=== PATIENT | male | born 1935 | race Caucasian/White ===

== ENCOUNTER 2017-10-30 07:06 | Outpatient (CLI) | payer MEDICARE, OTHER, SELFPAY ==
[2017-10-30] VITALS (11 sets, daily range): BP systolic 119–143; BP diastolic 48–69; PULSE 54–72; RESP 18; TEMP 36.3; O2SAT 99–100
--- NOTE | 2017-10-30 07:09 | DI.RAD.S_ITS ---
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 Appropriate location(s) of the needle tip(s) was confirmed by injection of iodinated contrast. IMPRESSION: Successful left L5-S1 nerve root epidural localization. Note is made on the lateral view of grade 2 anterolisthesis of L5 on S1, previously also documented by recent MR scanning. Dictated by: Darvin Bellamy M.D. on 10/30/2017 at 16:28 Approved by: Darvin Bellamy M.D. on 10/30/2017 at 16:30
--- NOTE | 2017-10-30 08:19 | P.PCN_ITS ---
Procedures Date/Time Date of procedure: 10/30/17 Time of procedure: 08:54 General Procedure description: PREOP DIAGNOSIS 1. FORMAINAL STENOSIS WITH LE SYMPTOMS POST OP DIAGNOSIS 1. FORMAINAL STENOSIS WITH LE SYMPTOMS PROCEDURES 1. FLUOROSCOPICALLY GUIDED CONTRAST CONTROLLED TRANSFORAMINAL EPIDURAL STEROID INJECTION - Left L5/S1 PHYSICIAN: Markel Hernandez DO INDICATIONS: Sae is referred by Dr. Brownlee for treatment of Foraminal Stenosis with Right LE Symptoms FINDINGS Foraminal Nerve Root Compression secondary to disc disease and facet hypertrophy DESCRIPTION OF PROCEDURE: Following denial of allergy and review of potential side effects and complications, including, but not necessarily limited to, infection, allergic reaction, local tissue breakdown, stroke, temporary or permanent nerve injury, paralysis, and possible , the patient indicated that the patient understood and agreed to proceed. An informed consent document was signed by the patient, witnessed by a nurse, and placed in the patient's chart. Additionally, other treatment options including medications, modalities, and physical therapy were reviewed with the patient. Per the patient request, IV conscious sedation was administered via 3mg of Versed to patient comfort. The patient's vital signs were monitored throughout the procedure by both the nurse and the physician without significant fluctuation. The patient remained conversant throughout the procedure. In the prone position following sterile prep and drape of the lumbar region, the Left L5/S1 posterior neuroforamen was identified fluoroscopically. The skin was anesthetized via a 25-gauge 1.5-inch needle with 1% lidocaine solution. At this point, a 25-gauge 3.5-inch spinal needle was atraumatically introduced and advanced under fluoroscopic guidance through the posterior Left L5/S1 neuroforamen to approximately the anterior aspect of the canal. Depth was confirmed on lateral view. Following negative aspiration, injection of approximately 1.5 cc of Isovue 200 under live fluoroscopy in the AP view confirmed excellent flow along the nerve root, into the epidural space without vascular or intrathecal uptake observed Radiological data, including multiple fluoroscopic views of the lumbosacral spine, reveal a spinal needle at the Left L5/S1 posterior neuroforamen. Subsequent views show flow of contrast material flowing superiorly and inferiorly along the nerve root confirming epidural flow. Subsequently, a test dose of 1.5 cc of 1% lidocaine solution was administered and patient was observed for two minutes for signs or symptoms of complications , including abdominal pain, shortness of breath, bilateral upper or lower extremity weakness, nausea and vomiting, prior to steroid injection. At this point, a total of 3 cc or 20 mg of dexamethasone and 80mg Depo Medrol was injected without incident. The patient was then transferred to the recovery area where they were observed for an appropriate time after the injection. The patient reported a VAS score of 7 prior to the procedure and a post-procedure VAS of 0. Total Fluoroscopy Time: 20.9 seconds Total Conscious Sedation Time: 24min POST OP INSTRUCTIONS The patient was provided a Pain Log to continue to record their response to the target-specific procedure prior to follow-up visit with their referring physician. Additionally, specific post-injection care instructions and a contact number to our office were provided if concerns arise regarding possible complications associated with the procedure are suspected. Markel Hernandez DO Complications: none
--- NOTE | 2017-10-30 08:30 | PM.PROC.1 ---
Procedures Date/Time Date of procedure: 10/30/17 Time of procedure: 08:30 General Procedure description: Complications: none
[2017-10-30] MEDS: MIDAZOLAM 5 MG/ML VIAL 3 MG IV (08:31)
[2017-10-30] MEDS: DEXAMETHASONE 10 MG/ML VIAL 20 MG INJ (08:40)
[2017-10-30] MEDS: methylPREDNISolone acetate 80 MG/ML VIAL INJ (08:40)
[2017-10-30] MEDS: IOPAMIDOL 15 ML VIAL 3 ML INJ (08:40)
[2017-10-30] MEDS: BUPIVACAINE 0.25% (PF) 30 ML VIAL INJ (08:42)
== END 2017-10-30 09:48 | disposition home or self-care (01) ==
LOC: RAD 07:08
PROVIDERS: Family Provider Family Medicine; PCP Family Medicine; Visit Provider Physical Medicine & Rehabilitation
DX: M54.17 Radiculopathy, lumbosacral region (principal); M43.17 Spondylolisthesis, lumbosacral region; M96.1 Postlaminectomy syndrome, not elsewhere classified; M21.372 Foot drop, left foot
CPT/HCPCS: 64483; 99152; J1040; J1100; J2250; J3010

== ENCOUNTER 2017-12-11 08:56 | Outpatient (CLI) | payer MEDICARE, OTHER, SELFPAY ==
[2017-12-11 09:08] VITALS: BP 141/74; PULSE 63; RESP 18; TEMP 36.1; O2SAT 97
--- NOTE | 2017-12-11 09:39 | PM.PROC.1 ---
Procedures Date/Time Date of procedure: 12/11/17 Time of procedure: 10:04 General Procedure description: This procedure was postponed and will be rescheduled due to medication issues to perform the procedure safely.
--- NOTE | 2017-12-11 10:01 | PC.NURSE ---
Pt only off Aspirin for 1 day, Dr. Morgan feels this pt needs to be off Aspirin for 5-7 days before procedure. Procedure has been postponed for safety reasons. Dr. Hernandez explained his concerns with pt, pt agreed to postpone procedure and Carmen called by [facility] to reschedule pt. Pt told by Shweta that Carmen or other office staff will be calling today to reschedule.
== END 2017-12-11 10:05 | disposition home or self-care (01) ==
LOC: RAD 08:58
PROVIDERS: Family Provider Family Medicine; PCP Family Medicine; Visit Provider Physical Medicine & Rehabilitation
DX: M43.17 Spondylolisthesis, lumbosacral region (principal); Z53.09 Procedure and treatment not carried out because of other contraindication; M21.372 Foot drop, left foot; M96.1 Postlaminectomy syndrome, not elsewhere classified

== ENCOUNTER 2017-12-26 11:00 | Outpatient (CLI) | payer MEDICARE, OTHER, SELFPAY ==
--- NOTE | 2017-12-26 | DI.RAD.S_ITS ---
PROCEDURE: PAIN L INTERLAMINAR/CAUDAL INJ INDICATIONS: LUMBOSACRAL RADICULOPATHY FINDINGS: Fluoroscopic spot filming was performed to verify placement of spinal needles at the L5-S1 level(s), as labeled on the films. Appropriate location(s) of the needle tip(s) was confirmed by injection of iodinated contrast. IMPRESSION: Successful needle tip localization for L5-S1 dorsal interlaminar epidural steroid injection. Dictated by: Darvin Bellamy M.D. on 12/26/2017 at 13:29 Approved by: Darvin Bellamy M.D. on 12/26/2017 at 13:30
[2017-12-26 11:42] VITALS: BP 155/78; PULSE 60; RESP 18; TEMP 36.6; O2SAT 99
--- NOTE | 2017-12-26 11:42 | PM.PROC.1 ---
Procedures Date/Time Date of procedure: 12/26/17 Time of procedure: 11:42 General Procedure description:
--- NOTE | 2017-12-26 11:51 | P.PCN_ITS ---
Procedures Date/Time Date of procedure: 12/26/17 Time of procedure: 12:04 General Procedure description: PROVIDER: Markel Hernandez DO Operative Note PREOP DIAGNOSIS 1. HNP WITH RADICULAR FEATURES, 2. MULTILEVEL CENTRAL STENOSIS, POST OP DIAGNOSIS 1. HNP WITH RADICULAR FEATURES, 2. MULTILEVEL CENTRAL STENOSIS, PROCEDURES 1. FLUORSCOPICALLY GUIDED CONTRAST CONTROLLED INTERLAMINAR EPIDURAL STEROID INJECTION - L5/S1 PHYSICIAN: Markel Hernandez DO INDICATIONS Peter is referred by Dr. Brownlee for treatment of Bilateral Foraminal Stenosis L> R LE symptoms. FINDINGS Multilevel Central Spinal Stenosis with Nerve Root Compression DESCRIPTION OF PROCEDURE Fluoroscopically guided, contrast-controlled L5/S1 translaminar epidural steroid injection. Following denial of allergy and review of potential side effects and complications, including, but not necessarily limited to, infection, allergic reaction, local tissue breakdown, temporary as well as permanent nerve injury, paralysis, stroke and possible , the patient indicated that the patient understood and agreed to proceed. An informed consent document was signed by the patient, witnessed by a nurse, and placed in the patient's chart. Additionally, other treatment options including modalities, medications, and physical therapy were reviewed with the patient. After review of previous anaesthesic history and IV conscious sedation the patient was deemed safe to proceed with todays procedure with IV conscious sedation as ASA class II designation. Safety time-out was performed to confirm patient ID, procedure to be performed and site of procedure. IV sedation was not administered during the course of the procedure and the patient remained responsive to all verbal commands. In the prone position, following sterile prep and drape of the lumbar region, the L5/S1 translaminar space was identified fluoroscopically. The skin was anesthetized via a 25-gauge, 1.5-inch needle with 1% lidocaine solution. At this point, a 22-gauge short bevel spinal needle was atraumatically introduced and advanced under fluoroscopic guidance into the region of the L5/S1 translaminar space. Depth was confirmed on lateral view. Radiological data, including multiple fluoroscopic views of the lumbar spine, reveal a spinal needle at the L5/S1 translaminar space. Lateral views then show placement of the needle in the epidural space. Subsequent views show contrast material flowing superiorly and inferiorly in the epidural space. No vascular or intrathecal uptake is observed. At this point, using loss of resistance technique with saline and air, the epidural space was entered. This was confirmed following negative aspiration with injection of approximately 1.5 cc of Isovue 200, showing excellent epidural flow without vascular or intrathecal uptake. At this point, 1 cc of 1 % lidocaine solution combined with 3 cc or 20 mg of dexamethasone and 80mg Depo medrol was injected without incident. The patent tolerated the procedure without signs of symptoms of complications prior to transfer to the recovery area for further monitoring. The patient was then transferred to the recovery area where they were observed for an appropriate period of time after the injection. The patient reported a VAS score of 6 prior to the procedure and a post-procedure VAS of 0. Total Fluoroscopy Time: 11.8 seconds Total Conscious Sedation Time: 0min POST OP INSTRUCTIONS The patient was provided a Pain Log to continue to record their response to the target-specific procedure prior to follow-up visit with their referring physician. Additionally, specific post-injection care instructions and a contact number to our office were provided if concerns arise regarding possible complications associated with the procedure are suspected. Markel Hernandez DO
[2017-12-26 11:55] VITALS: BP 164/82; PULSE 61; RESP 18; O2SAT 97
[2017-12-26 11:59] VITALS: BP 153/72; PULSE 60; RESP 18; O2SAT 97
[2017-12-26] MEDS: BUPIVACAINE 0.25% (PF) VIAL 2 ML INJ (12:00)
[2017-12-26] MEDS: IOPAMIDOL 15 ML VIAL 3 ML INJ (12:00)
[2017-12-26 12:01] VITALS: BP 152/77; PULSE 62; RESP 17; O2SAT 97
[2017-12-26] MEDS: DEXAMETHASONE 10 MG/ML VIAL 20 MG INJ (12:01)
[2017-12-26] MEDS: methylPREDNISolone acetate 80 MG/ML VIAL INJ (12:01)
[2017-12-26 12:10] VITALS: BP 125/63; PULSE 55; RESP 18; O2SAT 100
== END 2017-12-26 13:05 | disposition home or self-care (01) ==
PROVIDERS: Family Provider Family Medicine; PCP Family Medicine; Visit Provider Physical Medicine & Rehabilitation
DX: M51.17 Intervertebral disc disorders with radiculopathy, lumbosacral region (principal); M48.07 Spinal stenosis, lumbosacral region
CPT/HCPCS: 62323; J1040; J1100; J2250

== ENCOUNTER → 2018-05-30 10:54 | Outpatient (CLI) | payer MEDICARE, OTHER, SELFPAY ==
--- NOTE | 2018-05-30 | DI.RAD.S_ITS ---
PROCEDURE: XR ANKLE LT 2V INDICATIONS: LEFT ANKLE PAIN TECHNIQUE: 3 views of the ankle were acquired. COMPARISON: None. FINDINGS: Bones: No fractures or dislocations. Ankle mortise is normally aligned. No suspicious bony lesions. Plantar calcaneal spur. Tibiotalar mild degenerative spurring. There is also diffuse midfoot degenerative spurring. Soft tissues: No tibiotalar joint effusion. Achilles tendon appears normal. IMPRESSION: Plantar calcaneal spur. No acute findings. Diffuse degenerative spurring Dictated by: Cristhian Reveles M.D. on 05/30/2018 at 12:30 Approved by: Cristhian Reveles M.D. on 05/30/2018 at 12:35
== END ==
PROVIDERS: PCP Family Medicine; Visit Provider Family Medicine
DX: M25.572 Pain in left ankle and joints of left foot (principal); M77.32 Calcaneal spur, left foot
CPT/HCPCS: 73600

== ENCOUNTER → 2018-09-02 12:43 | Outpatient (REF) | payer MEDICARE, OTHER, SELFPAY ==
[2018-09-02 13:05] LABS: Influenza A and B by PCR Rapid Negative (Negative)
== END ==
LOC: LAB 12:43
PROVIDERS: Family Provider Family Medicine; PCP Family Medicine; Visit Provider Family Medicine
DX: R05 Cough (principal); J02.9 Acute pharyngitis, unspecified
CPT/HCPCS: 87400

== ENCOUNTER → 2019-11-17 08:55 | Outpatient (CLI) | payer MEDICARE, OTHER, SELFPAY ==
--- NOTE | 2019-11-17 | DI.CT.S_ITS ---
PROCEDURE: CT SINUS SCREEN WO CON INDICATIONS: Chronic sinusitis TECHNIQUE: Noncontrast 3.0 mm axial images acquired from the frontal sinuses to the mid-sella, with coronal and sagittal reformats. For radiation dose reduction, the following was used: automated exposure control, adjustment of mA and/or kV according to patient size. COMPARISON: None. FINDINGS: Image quality: Excellent. Maxillary Sinuses: No bony remodeling or destruction. Minimal mucosal thickening in the inferior left maxillary sinus. The ostia are patent. Ethmoid Air Cells: No bony remodeling or destruction. Sinuses are clear. Sphenoid Sinuses: No bony remodeling or destruction. Sinuses are clear. Frontal Sinuses: No bony remodeling or destruction. Sinuses are clear. Ostiomeatal Complexes: Ostiomeatal complexes are patent. No [place] cells. Miscellaneous: Visualized intra-orbital contents are normal. Left forrest bullosa without opacification. No paradoxical turbinate curvature. Rightward nasal septal deviation with spurring at the level of the inferior nasal turbinate. There is approximately 4 mm asymmetric elevation of the left fovea ethmoidalis when compared with the right. IMPRESSION: 1. Minimal inflammatory changes in the inferior left maxillary sinus. No findings of acute or chronic sinusitis. Dictated by: Robert Wei M.D. on 11/17/2019 at 9:58 Approved by: Robert Wei M.D. on 11/17/2019 at 10:03
== END ==
PROVIDERS: Family Provider Family Medicine; PCP Family Medicine; Referring Provider Family Medicine; Visit Provider Family Medicine
DX: J32.9 Chronic sinusitis, unspecified (principal)
CPT/HCPCS: 70486

== ENCOUNTER → 2020-06-18 10:19 | Outpatient (CLI) | payer MEDICARE, OTHER, SELFPAY ==
[2020-06-18] MEDS: COVID-19 VACC #1, MRNA(MOD) 100 MCG/0.5 ML VIAL IM (10:24)
== END ==
PROVIDERS: Family Provider Family Medicine; PCP Family Medicine; Visit Provider Internal Medicine
DX: Z23 Encounter for immunization (principal)
CPT/HCPCS: 0011A; 91301

== ENCOUNTER → 2020-07-16 11:06 | Outpatient (CLI) | payer MEDICARE, OTHER, SELFPAY ==
[2020-07-16] MEDS: COVID-19 VACC #2, MRNA(MOD) 100 MCG/0.5 ML VIAL IM (11:11)
== END ==
PROVIDERS: Family Provider Family Medicine; PCP Family Medicine; Visit Provider Internal Medicine
DX: Z23 Encounter for immunization (principal)
CPT/HCPCS: 0012A; 91301

== ENCOUNTER 2020-10-22 12:43 | Emergency (ER) | payer MEDICARE, OTHER, SELFPAY ==
[2020-10-22 12:45] VITALS: BP 102/67; PULSE 130; RESP 16; TEMP 36.7; O2SAT 99; BMI 34.2
--- NOTE | 2020-10-22 15:56 | ED.WOUNDLAC ---
HPI - Wound/Laceration General Chief Complaint: Wound/Laceration Stated Complaint: Fall, Left Wrist Laceration, Blood Thinners Time Seen by Provider: 10/22/20 15:55 Source: patient Mode of arrival: Ambulatory Limitations: no limitations History of Present Illness HPI narrative: 85-year-old male nonsmoker with history of atrial flutter on anticoagulation presents with his in the chief complaint of a ground level fall in which he landed onto his left wrist and suffered small laceration. He denies any head, neck or back pain. He has full recall of the event. He states that he merely tripped and had no prodromal symptoms. He denies any chest pain or shortness of breath. He has full range of motion denies any numbness, tingling or weakness. He is otherwise well and free of complaint Onset (ago): hour(s) Extremity Location: Left: wrist Place: home Patient tetanus UTD: No Context: accidental Associated symptoms: none Treatments prior to arrival: bandage Related Data Home Medications Medication Instructions Recorded Confirmed aspirin 325 mg tablet 325 mg PO DAILY 10/12/17 01/18/18 atorvastatin 20 mg tablet 10 mg PO DAILY 10/12/17 01/18/18 betamethasone, augmented 0.05 % 1 applictn TOP DAILY 10/12/17 01/18/18 topical cream cromolyn 5.2 mg/spray (4 %) nasal 2 spray NASAL TID ml 10/12/17 01/18/18 spray cyclosporine 0.05 % eye drops in a EYE-BOTH each 10/12/17 01/18/18 dropperette fexofenadine 180 mg tablet 180 mg PO DAILY 10/12/17 01/18/18 lisinopril 10 mg tablet 10 mg PO DAILY 10/12/17 01/18/18 niacin 500 mg capsule,extended 500 mg PO BEDTIME 10/12/17 01/18/18 release omega-3 fatty acids 1,000 mg 1,000 mg PO DAILY 10/12/17 01/18/18 capsule tramadol 50 mg tablet 50 mg PO QID 10/12/17 01/18/18 Previous Rx's Medication Instructions Recorded gabapentin 300 mg capsule 300 mg PO TID #90 cap 01/18/18 Allergies Allergy/AdvReac Type Severity Reaction Status Date / Time No Known Drug Allergies Allergy Verified 05/28/21 12:49 Review of Systems Constitutional Constitutional: Denies chills, Denies fatigue, Denies fever(s), Denies frequent falls, Denies lethargy and Denies weakness Eyes Eyes: Denies change in vision, Denies eye discharge, Denies irritation and Denies loss of vision ENT Ears, Nose, Mouth, and Throat: Denies change in voice, Denies dizziness, Denies neck pain, Denies sore throat and Denies throat swelling Cardiovascular Cardiovascular: Denies chest pain, Denies irregular heart rhythm, Denies lightheadedness, Denies palpitations, Denies dyspnea, Denies dyspnea on exertion and Denies orthopnea Respiratory Respiratory: Denies cough, Denies dyspnea, Denies dyspnea on exertion and Denies wheezing Gastrointestinal Gastrointestinal: Denies abdominal pain, Denies change in bowel habits, Denies diarrhea, Denies nausea and Denies vomiting Musculoskeletal Musculoskeletal: Denies neck pain and Denies numbness Integumentary/Breasts Skin/Breast: Denies pruritus, Denies erythema, Denies rash and Reports wounds Neurologic Neurologic: Denies behavioral changes, Denies confusion, Denies dizziness, Denies frequent falls, Denies loss of vision, Denies numbness and Denies weakness Psychiatric Psychiatric: Denies anxiety, Denies behavioral changes, Denies confusion, Denies depression, Denies homicidal ideation and Denies suicidal ideation Endocrine Endocrine: Denies fatigue, Denies flushing and Denies palpitations Hematologic/Lymphatic Hematologic/Lymphatic: Denies easy bruising Allergic/Immunologic Allergic/Immunologic: Denies urticaria, Denies throat swelling and Denies wheezing Patient History Medical History Asthma Diabetes Surgical History Previous back surgery Family History Father No problems noted. Mother No problems noted. Social History Smoking Status: Never smoker Smoking Status: Never smoker alcohol intake frequency: holidays/special occasions only Substance Use Type: does not use Exam Narrative Exam Narrative: GEN: AOx3 and in mild distress EYES: Pupils are equal, round, and reactive to light and accommodation. Extraoccular muscles are intact bilaterally. There is no subconjunctival hemorrhage or exudate. CHEST: Lungs are clear to auscultation bilaterally and free of wheezes, rales, or rhonchi. Heart rate is regular rhythm, there are no murmurs, clicks, rubs, or gallops. There is no chest wall tenderness. ABD: Abdomen is soft and nontender. There is no guarding or rebound. Bowel sounds are normal in all 4 quadrants. There is no mass or organomegaly. EXT: Full painless ROM of all extremities with no loss of sensation or strength. SKIN: 2 cm laceration on the volar aspect or left wrist, superficial in nature, minimal bleeding, no pulsatile nature, deep structures intact. Warm, pink, and dry. No erythema or rash Initial Vital Signs Initial Vital Signs: Vital Signs Temperature 98.0 F 10/22/20 12:45 Pulse Rate 130 H 10/22/20 12:45 Respiratory Rate 16 10/22/20 12:45 Blood Pressure 102/67 10/22/20 12:45 Pulse Oximetry 99 10/22/20 12:45 Procedures Laceration Repair Laceration 1: Site: upper extremity Side (If applicable): left Size (cm): 2 Description: linear Depth: simple, single layer Local Anesthetic: lidocaine 1% Pre-repair: wound explored Skin layer closed with: nylon Size (cm): 4-0 Number of sutures: 3 Technique: simple, interrupted Course Orders Ordered: Discontinued Medications Diphtheria/Tetanus/Acell Pertussis (Tet,Diph,Pertuss(Acell),Vac/Pf 0.5 Ml Syringe) 0.5 ml IM .ONCE ONE Stop: 10/22/20 16:16 Last Admin: 10/22/20 16:38 Dose: 0.5 ml Documented by: [email or web address] Lidocaine/Epinephrine (Lidocaine 1% W/Epi) 1 ml SUBCUT NOW ONE Stop: 10/22/20 15:58 Last Admin: 10/22/20 16:06 Dose: 1 ml Documented by: [email or web address] Vital Signs Vital signs: Vital Signs - 8 hr 10/22/20 12:45 Temperature 98.0 F Pulse Rate 130 H Respiratory Rate 16 Blood Pressure 102/67 Pulse Oximetry 99 Discharge Plan Departure Patient Disposition: Home Clinical Impression: Laceration of left wrist Qualifiers: Encounter type: initial encounter Qualified Code(s): S61.512A - Laceration without foreign body of left wrist, initial encounter Instructions: DI for Laceration Repair Activity Restrictions/Additional Instructions: *You have been diagnosed with [fall with left wrist laceration, suture repair and tetanus update] *What to do: *Please continue to take your regular medications as directed. [ ] New medication prescriptions sent to your pharmacy: [ ] [ ] New medication written as a paper prescription [x ] No new medications given * Please keep the wound clean and dry to the best of your ability. Please monitor for signs of infection such as redness to the skin or increasing pain. Have the sutures removed by your doctor in about 7 days. If you are unable to get into your doctor, we would be happy to remove the sutures in that same timeframe. *If you do not have a primary care provider please contact the [facility] Resource line at [phone]. They will ask some questions about your medical history and help get you set up with a doctor in the community. *Return to Emergency Department if you should have any new, worsening or concerning symptoms, such as [fever greater than 101 F, shaking chills, worsening pain, persistent vomiting or other bothersome symptoms] Prescriptions: No Action atorvastatin 20 mg tablet 10 mg PO DAILY RF: 0 cromolyn 5.2 mg/spray (4 %) spray,non-aerosol 2 spray NASAL TID RF: 0 omega-3 fatty acids [Fish Oil Concentrate] 1,000 mg capsule 1,000 mg PO DAILY RF: 0 aspirin 325 mg tablet 325 mg PO DAILY RF: 0 betamethasone, augmented 0.05 % cream 1 applictn TOP DAILY RF: 0 fexofenadine 180 mg tablet 180 mg PO DAILY RF: 0 tramadol 50 mg tablet 50 mg PO QID RF: 0 lisinopril 10 mg tablet 10 mg PO DAILY RF: 0 niacin 500 mg capsule, extended release 500 mg PO BEDTIME RF: 0 cyclosporine [Restasis] 0.05 % dropperette EYE-BOTH RF: 0 gabapentin 300 mg capsule 300 mg PO TID Qty: 90 RF: 2 Referrals: Markel Brownlee MD [Primary Care Provider] -
[2020-10-22] MEDS: LIDOCAINE 1% W/EPI 1 ML SUBCUT (16:06)
--- NOTE | 2020-10-22 16:13 | PC.NURSE ---
Called [facility] and they stated his last tetnus was September/2011
[2020-10-22] MEDS: TET,DIPH,PERTUSS(ACELL),VAC/PF 0.5 ML SYRINGE IM (16:38)
[2020-10-22 16:43] VITALS: BP 127/69; PULSE 129; RESP 16; O2SAT 98
== END 2020-10-22 16:53 | disposition home or self-care (01) ==
PROVIDERS: Emergency Provider Emergency Medicine; Family Provider Family Medicine; PCP Family Medicine
DX: S61.512A Laceration without foreign body of left wrist, initial encounter (principal); W19.XXXA Unspecified fall, initial encounter; Z23 Encounter for immunization
CPT/HCPCS: 12001; 90471; 99283; 90715

== ENCOUNTER → 2020-10-28 12:35 | Outpatient (CLI) | payer MEDICARE, OTHER, SELFPAY ==
--- NOTE | 2020-11-24 09:44 | PM.CARDMON.1 ---
[facility] Nurse Report Referral & Results Date Patient Seen: 10/28/20 Requesting provider: Markel Brownlee Indication: Atrial fibrillation Duration of monitoring (days): 3 Diary information: There are no patient events to review Data: Minimum heart rate identified was 56 beats per minute at 01:03 on 10/31/2020 Maximum heart rate was 154 beats per minute at 07:27 on 10/29/2020 Less than 1% of identified beats were ventricular or supraventricular ectopic in origin, which would classify them as rare. Patient appeared to be in atrial flutter for the entire duration of the monitoring period. Some of these episodes may be atrial tachycardia with variable block but reviewing even the strips with the slowest heart rate atrial flutter appears to be more likely diagnosis. There was also a 6 beat run of monomorphic ventricular tachycardia Impression: Patient with atrial flutter and variable conduction as above Single run of nonsustained ventricular tachycardia as above Clinical correlation suggested
== END ==
PROVIDERS: Family Provider Family Medicine; PCP Family Medicine; Referring Provider Family Medicine; Visit Provider Family Medicine
DX: I48.91 Unspecified atrial fibrillation (principal)
CPT/HCPCS: 93242; 93244

== ENCOUNTER → 2020-11-08 15:57 | Outpatient (CLI) | payer MEDICARE, OTHER, SELFPAY ==
--- NOTE | 2020-11-08 | DI.ECHO.S_ITS ---
[facility]---------+ [facility] +---------+ : : [address] [place] : : : : [id number] : : : : Phone: [phone] Echocardiogram Report + + :Name: ANASTACIA VEGA Study Date: 11/08/2020 Height: 71 in : :[facility] ReadingLocation: Weight: 242 lb : : Gender: Male BSA: 2.3 m2 : :: 1935 Age: 85 yrs BP: 138/75 mmHg: :Reason For Study: ATRIAL FIBRILLATION : :Ordering Physician: JESSE, : :TONNY Performed By: Gina Arellano : :Referring: TONNY MOLINA : + + Interpretation Summary 1) Normal left ventricular size with low normal systolic function (EF 50-55%). 2) Normal right ventricular size with low normal function. 3) Severe left atrial enlargement present. 4) Mild mitral regurgitation present. 5) No prior Echo available for comparison. Procedure: A two-dimensional transthoracic echocardiogram with color flow and Doppler was performed. The study quality was technically difficult. There is no prior echocardiogram noted for this patient. The patient was in atrial fibrillation with heart rates between 97-122 bpm during the exam. Left Ventricle: The left ventricle is normal in size. There is mild-moderate concentric left ventricular hypertrophy. The ejection fraction is estimated to be 50-55%. There are no focal wall motion abnormalities. Diastolic function could not be accurately assessed due to atrial fibrillation. Right Ventricle: The right ventricle is normal size. Right ventricular systolic function is at the lower limits of normal. Atria: The left atrium is severely dilated. Right atrial size is normal. There is no Doppler evidence for an interatrial shunt. Mitral Valve: The mitral valve leaflets are slightly calcified. There is mild mitral regurgitation. Aortic Valve: The aortic valve is not well visualized. There is no aortic valve stenosis. No aortic regurgitation is present. Tricuspid Valve: The tricuspid valve is not well visualized, but is grossly normal. There is trace tricuspid regurgitation. Pulmonary artery pressures cannot be estimated because of the lack of a measurable TR jet velocity but the IVC suggests a CVP of around 3 mmHg. Pulmonic Valve: The pulmonic valve is not well visualized. Great Vessels: The aortic root is not well visualized. The ascending aorta is at the upper limits of normal in size. The aortic arch is at the upper limits of normal in size. The IVC is of normal diameter and collapses greater than 50% with a sniff. This suggests a low right atrial pressure of 3 mm Hg. Pericardium/ Pleura There is no pericardial effusion. There is no pleural effusion. MMode/2D Measurements & Calculations LVIDd: 4.1 cm LVOT diam: 2.4 cm LVIDs: 2.7 cm asc Aorta Diam: 3.7 cm FS: 33.2 % Ao Arch Diam (Prox Trans): 3.5 cm IVSd: 1.5 cm LVPWd: 1.3 cm LV ruiz. diameter/BSA (cm/m^2): 1.8 LV sys. diameter/BSA (cm/m^2): 1.2 LA A2 area: 40.6 cm2 RA long axis: 5.0 cm LA A4 area: 31.2 cm2 RA area: 17.6 cm2 LA length (vol): 6.8 cm RA vol: 52.8 ml LA vol: 157.6 ml RA : 23.1 ml/m2 LA vol index: 68.9 ml/m2 IVC diam: 1.7 cm RVD1 (basal): 3.9 cm TAPSE: 1.6 cm Doppler Measurements & Calculations Ao V2 max: 136.0 cm/sec LVOT Max Christiano: 107.0 cm/sec Ao V2 mean: 90.0 cm/sec LV V1 max P.6 mmHg Ao max P.4 mmHg LV V1 VTI: 17.0 cm Ao mean P.7 mmHg GIOVANNY(I,D): 3.3 cm2 Ao V2 VTI: 23.1 cm GIOVANNY(V,D): 3.5 cm2 sev ratio: 0.73 GIOVANNY indexed to BSA (cm^2/m^2): 1.4 MV E max christiano: 89.1 cm/sec SV(LVOT): 75.9 ml MV A max christiano: 0.64 cm/sec MV E/A: 138.5 Med Peak E' Christiano: 9.5 cm/sec E/E' med: 9.4 Lat Peak E' Christiano: 9.8 cm/sec E/E' lat: 9.1 E/e' average: 9.2 MV dec time: 0.11 sec Reading Physician:10:45 AM
== END ==
PROVIDERS: Family Provider Family Medicine; PCP Family Medicine; Referring Provider Family Medicine; Visit Provider Family Medicine
DX: I34.0 Nonrheumatic mitral (valve) insufficiency (principal); I48.91 Unspecified atrial fibrillation
CPT/HCPCS: 93306

== ENCOUNTER → 2020-11-22 08:16 | Outpatient (CLI) | payer MEDICARE, OTHER, SELFPAY ==
[2020-11-22 10:05] LABS: COVID19 -Nasal RAPID Negative (Negative)
== END ==
PROVIDERS: Family Provider Family Medicine; PCP Family Medicine; Referring Provider Physician Assistant; Visit Provider Physician Assistant
DX: Z01.812 Encounter for preprocedural laboratory examination (principal); Z20.822 Contact with and (suspected) exposure to COVID-19
CPT/HCPCS: 87635; C9803

== ENCOUNTER → 2020-11-23 10:39 | Outpatient (CLI) | payer MEDICARE, OTHER, SELFPAY ==
--- NOTE | 2020-11-23 11:50 | PM.TREADMILL ---
Cardiac Stress Test Report Referral & Results Date Patient Seen: 11/23/20 Time Patient Seen: 11:50 Requesting provider: Markel Brownlee Indication: Atrial Fibrillation Rest ECG: Atrial Fibrillation with RVR at 121 BPM Procedure Note: Test changed to Lexiscan because patient could not keep up walking. After Lexiscan injection had minimal dyspnea or chest pain No significant EKG changes after Lexiscan injection. Impression: Normal Lexiscan stress test Please note: Actual ECG tracings can be found in the PACS system.
--- NOTE | 2020-11-23 12:29 | PM.EVENT ---
Event Note Date Patient Seen: 11/23/20 Time Patient Seen: 12:29 Event Note: After Lexiscan stress test, upon sitting up patient had a syncopal episode with LOC for 8 seconds witnessed by the radiology nurse Laurel Hammond.BP 80/50, heart rate 124, he was pale with skin cool and clammy. Upon lying the patient back on stretcher he was immediately awake, alert and oriented. He was given 100 ml of .9% NS IV. His color improved. Blood pressure improved to 116/60. After 10 minutes attempted to sit the patient up. Upon sitting up he once again became pale, with skin cool and clammy. Blood pressure 90/58 HR 130. Blood pressure later dropped to 88/60. ER notified. Report was given to Dr. Jovel. Patient was transferred to ER via stretcher with 0.9% NS infusing via a right lower forearm peripheral IV.
== END ==
PROVIDERS: Family Provider Family Medicine; PCP Family Medicine; Referring Provider Family Medicine; Visit Provider Family Medicine
DX: I48.91 Unspecified atrial fibrillation (principal); Z53.9 Procedure and treatment not carried out, unspecified reason

== ENCOUNTER 2020-11-23 12:25 | Emergency (ER) | payer MEDICARE, OTHER, SELFPAY ==
[2020-11-23] VITALS (29 sets, daily range): BP systolic 100–136; BP diastolic 58–84; PULSE 63–132; RESP 12–25; TEMP 36.6; O2SAT 93–100; BMI 33.5
--- NOTE | 2020-11-23 12:34 | DI.RAD.S_ITS ---
PROCEDURE: XR CHEST 1V INDICATIONS: chest pain TECHNIQUE: One view of the chest was acquired. COMPARISON: [facility], , CHEST 2 VIEW, 03/07/2017, 10:50. FINDINGS: Surgical changes and devices: None. Lungs and pleura: Elevation right hemidiaphragm present. Left basilar atelectasis and/or infiltrate noted. Mediastinum: Heart size is enlarged. Calcified granuloma noted in the left upper lung. Bones and chest wall: No suspicious bony lesions. Overlying soft tissues appear unremarkable. IMPRESSION: Left basilar atelectasis and or infiltrate Cardiomegaly Elevated right hemidiaphragm. Dictated by: Niko Saab M.D. on 11/23/2020 at 12:59 Approved by: Niko Saab M.D. on 11/23/2020 at 13:01
[2020-11-23 12:54] LABS: Add Manual Diff / Slide Review NO; Basophils Absolute Auto 100 /uL (0-100); Basophils Percent Auto 1.1 % (0-2); Eosinophils Absolute Auto 0 /uL (0-450); Eosinophils Percent Auto 0.7 % (2-4); Hematocrit 36.5 % (41-53); Hemoglobin 12.1 g/dL (13.5-17.5); Lymphocytes Absolute Auto 1600 /uL (1100-4500); Lymphocytes Percent Auto 25.4 % (25-40); Mean Corpuscular HGB Conc 33.2 % (30-36); Mean Corpuscular Hemoglobin 31.2 PG (26-34); Mean Corpuscular Volume 94.2 fL (80-100); Monocytes Absolute Auto 600 /uL (0-900); Monocytes Percent Auto 8.9 % (3-14); Neutrophils Absolute Auto 4100 /uL (1500-7000); Neutrophils Percent Auto 63.9 % (50-75); Platelet Count 223 X10^3/uL (150-400); Red Blood Cell Count 3.87 X10^6/uL (4.5-5.9); Red Cell Distribution Width 13.5 % (11.6-14.8); White Blood Cell Count 6.5 X10^3/uL (4.5-11.0)
[2020-11-23 13:07] LABS: Alanine Aminotransferase 16 IU/L (<50); Albumin 3.7 g/dL (3.5-5.0); Albumin Globulin Ratio 1.3 (1.0-2.8); Alkaline Phosphatase 72 U/L (38-126); Aspartate Aminotransferase 24 IU/L (17-59); BUN Creatinine Ratio 27.4 (6-22); Bilirubin Total 0.7 mg/dL (0.2-1.3); Blood Urea Nitrogen 17 mg/dL (9-20); Calcium 8.8 mg/dL (8.4-10.2); Carbon Dioxide 26 mmol/L (22-32); Chloride 108 mmol/L (98-107); Estimated Glomerular Filt Rate > 60.0 mL/min (>60); Globulin 2.9 g/dL (1.7-4.1); Glucose 165 mg/dL (80-110); HEMOLYSIS 45 (0-50); Potassium 4.3 mmol/L (3.4-5.1); Sodium 140 mmol/L (137-145); Total Protein 6.6 g/dL (6.3-8.2)
[2020-11-23] MEDS: dilTIAZem 5 MG/ML SDV 20 MG IV (13:13)
[2020-11-23] MEDS: SODIUM CHLORIDE 0.9% 1,000 ML 150 ML IV (13:15)
--- NOTE | 2020-11-23 13:59 | ED.ARRPALP ---
HPI - Arrhythmia/Palpitations General Chief Complaint: Arrhythmia/Palpitations Stated Complaint: Passed out Time Seen by Provider: 11/23/20 12:33 Source: other Mode of arrival: other Limitations: no limitations History of Present Illness HPI narrative: Patient is an 85-year-old male who has history of atrial fibrillation and started on Eliquis about 3 weeks ago. Was getting a stress test he had the 1st part today when he suddenly got dizzy lightheaded and diaphoretic blood pressure dropped to the 80s and he was rushed to the emergency department. He denies any chest pain palpitations. He is currently feeling better in regards to the dizziness. He does not have any shortness of breath. He is scheduled for cardioversion next month. Related Data Home Medications Medication Instructions Recorded Confirmed aspirin 325 mg tablet 325 mg PO DAILY 10/12/17 01/18/18 atorvastatin 20 mg tablet 10 mg PO DAILY 10/12/17 01/18/18 betamethasone, augmented 0.05 % 1 applictn TOP DAILY 10/12/17 01/18/18 topical cream cromolyn 5.2 mg/spray (4 %) nasal 2 spray NASAL TID ml 10/12/17 01/18/18 spray cyclosporine 0.05 % eye drops in a EYE-BOTH each 10/12/17 01/18/18 dropperette (Restasis) fexofenadine 180 mg tablet 180 mg PO DAILY 10/12/17 01/18/18 lisinopril 10 mg tablet 10 mg PO DAILY 10/12/17 01/18/18 niacin 500 mg capsule,extended 500 mg PO BEDTIME 10/12/17 01/18/18 release omega-3 fatty acids 1,000 mg 1,000 mg PO DAILY 10/12/17 01/18/18 capsule (Fish Oil Concentrate) tramadol 50 mg tablet 50 mg PO QID 10/12/17 01/18/18 Previous Rx's Medication Instructions Recorded gabapentin 300 mg capsule 300 mg PO TID #90 cap 01/18/18 Allergies Allergy/AdvReac Type Severity Reaction Status Date / Time No Known Drug Allergies Allergy Verified 10/22/20 12:49 Review of Systems Review of Systems ROS Unobtainable: All systems reviewed & are unremarkable except as noted in HPI and below Constitutional Constitutional: Denies chills and Denies daytime sleepiness ENT Ears, Nose, Mouth, and Throat: Denies vertigo, Reports dizziness and Denies nasal discharge Cardiovascular Cardiovascular: Reports lightheadedness and Denies dyspnea Respiratory Respiratory: Denies cough and Denies dyspnea Gastrointestinal Gastrointestinal: Denies abdominal pain, Denies nausea and Denies vomiting Genitourinary Genitourinary: Denies urinary frequency and Denies urinary hesitancy Musculoskeletal Musculoskeletal: Denies abnormal gait and Denies back pain Integumentary/Breasts Skin/Breast: Denies rash and Denies skin swelling Neurologic Neurologic: Denies abnormal gait, Denies vertigo and Reports dizziness Patient History Medical History (Updated 11/23/20 @ 14:37 by Ligia Jon DO) Asthma Diabetes Surgical History Previous back surgery Family History Father No problems noted. Mother No problems noted. Social History Smoking Status: Never smoker Smoking Status: Never smoker alcohol intake frequency: holidays/special occasions only Substance Use Type: does not use Exam Initial Vital Signs Initial Vital Signs: Vital Signs Pulse Rate 132 H 11/23/20 12:27 Respiratory Rate 17 11/23/20 12:27 Pulse Oximetry 100 11/23/20 12:27 GENERAL: Alert pleasant 85-year-old male and in no acute distress. HEENT: Head atraumatic,EOMI, pupils reactive, face symmetric, moist mucous membranes CARDIOVASCULAR: Irregularly irregular RESPIRATORY: Breath sounds equal bilaterally, no wheezes rales or rhonchi. ABDOMEN: Soft, nontender. Normoactive bowel sounds all 4 quadrants. No guarding or rebound. EXTREMITIES: Normal range of motion, no clubbing or edema. Neurovascularly intact NEUROLOGICAL: Alert and oriented x4.Normal gait and speech. Cranial nerves II through XII grossly intact. Health Outcomes Liaison strength equal bilaterally SKIN: Warm, dry, no laceration, no petechiae, no rashes or lesions. Course Orders Ordered: Discontinued Medications Diltiazem HCl (Diltiazem 5 Mg/Ml Sdv) 20 mg IV NOW ONE Stop: 11/23/20 12:34 Last Admin: 11/23/20 13:13 Dose: 20 mg Documented by: DWIGHT Diltiazem HCl (Diltiazem 5 Mg/Ml Sdv) 10 mg IV NOW ONE Stop: 11/23/20 14:39 Last Admin: 11/23/20 14:41 Dose: 10 mg Documented by: DWIGHT Sodium Chloride (Normal Saline 0.9%) 1,000 mls @ 150 mls/hr IV CONT SUZANNA Last Infusion: 11/23/20 14:56 Dose: 0 mls/hr Documented by: Admin: 11/23/20 13:15 Dose: 150 mls/hr Documented by: DWIGHT Metoprolol Tartrate (Metoprolol Ir 25 Mg Tablet) 50 mg PO NOW ONE Stop: 11/23/20 14:14 Last Admin: 11/23/20 14:20 Dose: 50 mg Documented by: DWIGHT Vital Signs Vital signs: Vital Signs - 8 hr 11/23/20 12:27 11/23/20 12:30 11/23/20 13:00 Temperature 97.8 F Pulse Rate 132 H 132 H 131 H Respiratory Rate 17 17 20 Blood Pressure 124/60 126/79 Pulse Oximetry 100 97 94 11/23/20 13:05 11/23/20 13:10 11/23/20 13:13 Temperature Pulse Rate 132 H 131 H 130 H Respiratory Rate 19 17 Blood Pressure 126/79 Pulse Oximetry 94 96 11/23/20 13:15 11/23/20 13:20 11/23/20 13:25 Temperature Pulse Rate 132 H 127 H 76 Respiratory Rate 17 15 23 Blood Pressure 106/63 100/63 Pulse Oximetry 96 97 96 MDM - Arrhythmia/Palpitations Lab Data Attestation: I reviewed the patient's lab results. Result diagrams: 11/23/20 12:40 11/23/20 12:40 Labs: Lab Results 11/23/20 11/23/20 11/23/20 Range/Units 12:40 12:40 12:40 WBC 6.5 (4.5-11.0) X10^3/uL RBC 3.87 L (4.5-5.9) X10^6/uL Hgb 12.1 L (13.5-17.5) g/dL Hct 36.5 L (41-53) % MCV 94.2 (80-100) fL MCH 31.2 (26-34) PG MCHC 33.2 (30-36) % RDW 13.5 (11.6-14.8) % Plt Count 223 (150-400) X10^3/uL Neut % (Auto) 63.9 (50-75) % Lymph % (Auto) 25.4 (25-40) % [place]go % (Auto) 8.9 (3-14) % Eos % (Auto) 0.7 L (2-4) % Baso % (Auto) 1.1 (0-2) % Neut # (Auto) 4100 (2697-8609) /uL Lymph # (Auto) 1600 (5394-2470) /uL [place] # (Auto) 600 (0-900) /uL Eos # (Auto) 0 (0-450) /uL Baso # (Auto) 100 (0-100) /uL Sodium 140 (137-145) mmol/L Potassium 4.3 (3.4-5.1) mmol/L Chloride 108 H (98-107) mmol/L Carbon Dioxide 26 (22-32) mmol/L BUN 17 (9-20) mg/dL Creatinine 0.62 L (0.66-1.25) mg/dL Estimated GFR > 60.0 (>60) mL/min BUN/Creatinine Ratio 27.4 H (6-22) Glucose 165 H (80-110) mg/dL Calcium 8.8 (8.4-10.2) mg/dL Total Bilirubin 0.7 (0.2-1.3) mg/dL AST 24 (17-59) IU/L ALT 16 (<50) IU/L Alkaline Phosphatase 72 (38-126) U/L Total Creatine Kinase < 20 L (55-170) U/L CK-MB (CK-2) TNP CK-MB (CK-2) Rel Index TNP Troponin I < 0.012 (0.01-0.034) ng/mL Total Protein 6.6 (6.3-8.2) g/dL Albumin 3.7 (3.5-5.0) g/dL Globulin 2.9 (1.7-4.1) g/dL Albumin/Globulin Ratio 1.3 (1.0-2.8) Imaging Data Chest x-ray: Radiologist's Impresson: PROCEDURE: XR CHEST 1V INDICATIONS: chest pain TECHNIQUE: One view of the chest was acquired. COMPARISON: [facility], , CHEST 2 VIEW, 03/07/2017, 10:50. FINDINGS: Surgical changes and devices: None. Lungs and pleura: Elevation right hemidiaphragm present. Left basilar atelectasis and/or infiltrate noted. Mediastinum: Heart size is enlarged. Calcified granuloma noted in the left upper lung. Bones and chest wall: No suspicious bony lesions. Overlying soft tissues appear unremarkable. IMPRESSION: Left basilar atelectasis and or infiltrate Cardiomegaly Elevated right hemidiaphragm. Dictated by: Niko Saab M.D. on 11/23/2020 at 12:59 ECG Data Interpretation: Atrial fibrillation with RVR rate [address] changes no prior EKGs MDM Narrative Medical decision making narrative: Patient has been off his metoprolol for 2 days for the stress test. He overall feels fine he is completely asymptomatic. He is not a candidate for cardioversion as Sound as though he is chronically in AFib and he has not been anticoagulated long and a and has a planned cardioversion next month. He responded well to diltiazem 20 mg for short period of time heart rate was in the 70s. It started increasing again into the low 120s. 1430 Dr. Brownlee updated patient's symptoms test results including failed stress test agrees to have patient follow-up as an outpatient. Patient actually spontaneously converted to normal sinus rhythm during his 2nd dose of diltiazem. He is overall feeling much better and ready and able to go Discharge Plan Departure Patient Disposition: Home Clinical Impression: Atrial fibrillation with RVR Instructions: Atrial Fibrillation Activity Restrictions/Additional Instructions: *You have been diagnosed with atrial fibrillation with RVR *What to do: At this time you will need to follow up with Dr. Brownlee. Please continue metoprolol and Eliquis as previously prescribed. You also need to have a repeat stress test *Continue to take medications as directed *Follow up with your primary care provider in 2-3 days *Return to ER if you should have increasing chest pain palpitations dizziness lightheadedness shortness of breath [or] any new, worsening or concerning symptoms Prescriptions: No Action atorvastatin 20 mg tablet 10 mg PO DAILY RF: 0 cromolyn 5.2 mg/spray (4 %) spray,non-aerosol 2 spray NASAL TID RF: 0 omega-3 fatty acids [Fish Oil Concentrate] 1,000 mg capsule 1,000 mg PO DAILY RF: 0 aspirin 325 mg tablet 325 mg PO DAILY RF: 0 betamethasone, augmented 0.05 % cream 1 applictn TOP DAILY RF: 0 fexofenadine 180 mg tablet 180 mg PO DAILY RF: 0 tramadol 50 mg tablet 50 mg PO QID RF: 0 lisinopril 10 mg tablet 10 mg PO DAILY RF: 0 niacin 500 mg capsule, extended release 500 mg PO BEDTIME RF: 0 cyclosporine [Restasis] 0.05 % dropperette EYE-BOTH RF: 0 gabapentin 300 mg capsule 300 mg PO TID Qty: 90 RF: 2 Referrals: Markel Brownlee MD [Primary Care Provider] -
[2020-11-23 14:01] LABS: Creatine Kinase < 20 U/L (55-170)
[2020-11-23 14:13] LABS: Troponin I < 0.012 ng/mL (0.01-0.034)
[2020-11-23] MEDS: METOPROLOL IR 25 MG TABLET 50 MG PO (14:20)
[2020-11-23] MEDS: dilTIAZem 5 MG/ML SDV 10 MG IV (14:41)
== END 2020-11-23 15:08 | disposition home or self-care (01) ==
PROVIDERS: Emergency Provider Emergency Medicine; Family Provider Family Medicine; PCP Family Medicine; Referring Provider Emergency Medicine
DX: I48.20 Chronic atrial fibrillation, unspecified (principal); Z79.01 Long term (current) use of anticoagulants; R42 Dizziness and giddiness
CPT/HCPCS: 36415; 71045; 80053; 82550; 84484; 85025; 93005; 96361; 96374; 96376; 99284

== ENCOUNTER → 2020-12-06 09:06 | Outpatient (CLI) | payer MEDICARE, OTHER, SELFPAY ==
[2020-12-06 10:23] LABS: COVID19 -Nasal RAPID Negative (Negative)
== END ==
PROVIDERS: Family Provider Family Medicine; PCP Family Medicine; Visit Provider Physician Assistant
DX: Z01.812 Encounter for preprocedural laboratory examination (principal); Z20.822 Contact with and (suspected) exposure to COVID-19
CPT/HCPCS: 87635; C9803

== ENCOUNTER → 2021-01-26 10:12 | Outpatient (CLI) | payer MEDICARE, OTHER, SELFPAY ==
[2021-01-26 12:50] LABS: COVID19 -Nasal RAPID Negative (Negative)
== END ==
PROVIDERS: Family Provider Family Medicine; PCP Family Medicine; Visit Provider Nurse Practitioner
DX: Z01.812 Encounter for preprocedural laboratory examination (principal); Z20.822 Contact with and (suspected) exposure to COVID-19
CPT/HCPCS: 87635; C9803

== ENCOUNTER → 2021-01-27 15:07 | Outpatient (CLI) | payer MEDICARE, OTHER, SELFPAY ==
--- NOTE | 2021-01-27 15:15 | DI.NM.S_ITS ---
PROCEDURE: EXERCISE TREADMILL NON NUC COMPARISON: None. INDICATIONS: Other persistent atrial fibrillation FINDINGS: Malick protocol 3 minutes 0 seconds. 3.2 METS. TONEY +29%. Peak heart rate 135 bpm, 94% peak predicted. Max blood pressure 138/92. Resting ECG sinus rhythm with frequent PACs. Stress ECG sinus tachycardia, no ST segment changes. Recovery ECG sinus rhythm, frequent PACs, occasional PVCs. IMPRESSION: No evidence of exercise-induced ischemia. Very limited exercise capacity. Frequent ectopy at rest. Dictated by: Sridevi Moss D.O. on 01/28/2021 at 15:18 Approved by: Sridevi Moss M.D. on 01/28/2021 at 15:33
== END ==
PROVIDERS: Family Provider Family Medicine; PCP Family Medicine; Referring Provider Internal Medicine Cardiovascular Disease; Visit Provider Internal Medicine Cardiovascular Disease
DX: R06.00 Dyspnea, unspecified (principal); I48.19 Other persistent atrial fibrillation
CPT/HCPCS: 93017

== ENCOUNTER 2021-02-03 13:38 | Emergency (ER) | payer MEDICARE, OTHER, SELFPAY ==
[2021-02-03] VITALS (17 sets, daily range): BP systolic 87–130; BP diastolic 47–66; PULSE 72–103; RESP 15–27; TEMP 36.7; O2SAT 94–98; BMI 32.5
--- NOTE | 2021-02-03 14:01 | DI.RAD.S_ITS ---
PROCEDURE: XR CHEST 1V INDICATIONS: chest pain TECHNIQUE: One view of the chest was acquired. COMPARISON: [facility], CR, XR CHEST 1V, 11/23/2020, 12:50. FINDINGS: Surgical changes and devices: None. Lungs and pleura: Calcified granuloma is again seen in left upper lobe. Bibasilar atelectasis is seen. No definite focal infiltrate. No pleural effusions or pneumothorax. Mediastinum: Mediastinal contours appear normal. Heart size is enlarged. Bones and chest wall: No suspicious bony lesions. Overlying soft tissues appear unremarkable. There are suggestion of air distended bowel loops seen under the diaphragm. IMPRESSION: 1. Bibasilar atelectasis and mild pulmonary vascular congestion. No definite focal infiltrate. No pleural effusion or pneumothorax. 2. Nonspecific air distended bowel loops seen inner the diaphragm. Dictated by: Trent Dumas M.D. on 02/03/2021 at 14:30 Approved by: Trent Dumas M.D. on 02/03/2021 at 14:38
--- NOTE | 2021-02-03 14:03 | ED_ITS ---
HPI - General Adult General Chief complaint: Syncope Stated complaint: near syncope x2 Time Seen by Provider: 02/03/21 13:50 Source: patient Mode of arrival: EMS History of Present Illness HPI narrative: Patient is an 86-year-old male who is here for evaluation of 2 episodes today woke that were initially described as syncopal however after further evaluation it appears to be more of a presyncopal episode. Patient states he was standing in line at a local department store where he stated that he started to feel very lightheaded. He had no other associated symptoms at the time to include chest pain or shortness of breath. No abdominal pain. He did have a cart in front of him and he somewhat leaned on the cart in order to support himself. He was able to go over and sit on a bench. Given started to feel better. He was able to be helped out to his car by the staff at the department store. He felt okay on his way home but not completely normal. When he arrived home he had another episode of being very lightheaded again no chest pain or shortness of breath. No headache. His helped him to his chair were he was able to sit down and again started to feel better. EMS was called. When they arrived he was orthostatic with a systolic blood pressure that dropped to the mid 60s when he stood up. He is taking all his medications as directed. At the time of my evaluation he states that he was feeling better but not completely back to normal again. Does have a history of atrial fibrillation. Is on anticoagulation for this. Related Data Home Medications Medication Instructions Recorded Confirmed aspirin 325 mg tablet 325 mg PO DAILY 10/12/17 01/18/18 atorvastatin 20 mg tablet 10 mg PO DAILY 10/12/17 01/18/18 betamethasone, augmented 0.05 % 1 applictn TOP DAILY 10/12/17 01/18/18 topical cream cromolyn 5.2 mg/spray (4 %) nasal 2 spray NASAL TID ml 10/12/17 01/18/18 spray cyclosporine 0.05 % eye drops in a EYE-BOTH each 10/12/17 01/18/18 dropperette (Restasis) fexofenadine 180 mg tablet 180 mg PO DAILY 10/12/17 01/18/18 lisinopril 10 mg tablet 10 mg PO DAILY 10/12/17 01/18/18 niacin 500 mg capsule,extended 500 mg PO BEDTIME 10/12/17 01/18/18 release omega-3 fatty acids 1,000 mg 1,000 mg PO DAILY 10/12/17 01/18/18 capsule (Fish Oil Concentrate) tramadol 50 mg tablet 50 mg PO QID 10/12/17 01/18/18 Previous Rx's Medication Instructions Recorded gabapentin 300 mg capsule 300 mg PO TID #90 cap 01/18/18 Allergies Allergy/AdvReac Type Severity Reaction Status Date / Time No Known Drug Allergies Allergy Verified 10/22/20 12:49 Review of Systems Constitutional Constitutional: Denies chills, Denies fatigue, Denies fever(s), Denies frequent falls and Denies headache(s) Comments: No headache, Eyes Eyes: Denies blurry vision and Denies change in vision ENT Ears, Nose, Mouth, and Throat: Denies headache(s), Denies sinus pain and Denies sore throat Cardiovascular Cardiovascular: Denies chest pain, Denies syncope, Denies rapid heart rate, Denies leg edema, Reports lightheadedness and Denies dyspnea Respiratory Respiratory: Denies cough and Denies dyspnea Gastrointestinal Gastrointestinal: Denies abdominal pain, Denies nausea and Denies vomiting Genitourinary Genitourinary: Reports system reviewed and no additional complaints, except as documented Musculoskeletal Musculoskeletal: Denies system reviewed and no additional complaints, except as documented Integumentary/Breasts Skin/Breast: Reports system reviewed and no additional complaints, except as documented Neurologic Neurologic: Denies syncope, Denies frequent falls and Denies headache(s) Endocrine Endocrine: Denies fatigue Hematologic/Lymphatic On Anticoagulants: Yes Allergic/Immunologic Allergic/Immunologic: Reports system reviewed and no additional complaints, except as documented Patient History Medical History Asthma Atrial fibrillation Diabetes Surgical History Previous back surgery Family History Father No problems noted. Mother No problems noted. Social History Smoking Status: Never smoker Smoking Status: Never smoker alcohol intake frequency: holidays/special occasions only Substance Use Type: does not use Exam Initial Vital Signs Initial Vital Signs: Vital Signs Pulse Rate 80 02/03/21 13:49 Respiratory Rate 23 02/03/21 13:49 Pulse Oximetry 94 02/03/21 13:49 Const General: cooperative, comfortable and well developed [facility] Head: normal to inspection and normocephalic Eyes General: appearance normal, both eyes and all related structures Resp Effort & Inspection: normal respiratory effort Auscultation: clear to auscultation bilaterally Cardio Rate: regular rate Rhythm: abnormal rhythm GI Inspection: normal to inspection Skin General: no rashes or lesions noted Neuro General: patient alert, patient awake, patient oriented x3, gait normal and moves all extremities Speech: speech normal Gait: normal gait Motor: muscle tone normal throughout Extrem General: normal to inspection and capillary refill normal Psych Appearance: grossly normal and well kempt Scores GCS Mercedes coma scale eye opening: Spontaneous Mercedes coma scale verbal response: Orientated [place] coma scale motor response: Obey commands [place] coma scale total score: 15 Course Orders Ordered: Discontinued Medications Sodium Chloride (Normal Saline 0.9%) 1,000 mls @ 500 mls/hr IV BOLUS ONE Stop: 02/03/21 16:02 Last Infusion: 02/03/21 14:51 Dose: 0 mls/hr Documented by: Admin: 02/03/21 14:48 Dose: 500 mls/hr Documented by: SULAIMAN Medical Decision Making Lab Data Lab results reviewed: Yes I reviewed the patient's lab results. Result diagrams: 02/03/21 14:11 02/03/21 13:25 Labs: Lab Results 02/03/21 02/03/21 Range/Units 13:25 14:11 WBC 7.3 (4.5-11.0) X10^3/uL RBC 3.75 L (4.5-5.9) X10^6/uL Hgb 11.7 L (13.5-17.5) g/dL Hct 35.3 L (41-53) % MCV 94.0 (80-100) fL MCH 31.2 (26-34) PG MCHC 33.2 (30-36) % RDW 13.7 (11.6-14.8) % Plt Count 312 (150-400) X10^3/uL Neut % (Auto) 70.4 (50-75) % Lymph % (Auto) 19.8 L (25-40) % Shelby % (Auto) 8.6 (3-14) % Eos % (Auto) 0.7 L (2-4) % Baso % (Auto) 0.5 (0-2) % Neut # (Auto) 5100 (8344-4457) /uL Lymph # (Auto) 1500 (1109-0900) /uL Shelby # (Auto) 600 (0-900) /uL Eos # (Auto) 100 (0-450) /uL Baso # (Auto) 0 (0-100) /uL Sodium 134 L (137-145) mmol/L Potassium 4.5 (3.4-5.1) mmol/L Chloride 100 (98-107) mmol/L Carbon Dioxide 22 (22-32) mmol/L BUN 22 H (9-20) mg/dL Creatinine 1.17 (0.66-1.25) mg/dL Estimated GFR 59.2 L (>60) mL/min BUN/Creatinine Ratio 18.8 (6-22) Glucose 220 H (80-110) mg/dL Calcium 9.2 (8.4-10.2) mg/dL Magnesium 1.6 (1.6-2.3) mg/dL Total Bilirubin 0.6 (0.2-1.3) mg/dL AST 20 (17-59) IU/L ALT 16 (<50) IU/L Alkaline Phosphatase 96 (38-126) U/L Total Creatine Kinase < 20 L (55-170) U/L CK-MB (CK-2) TNP CK-MB (CK-2) Rel Index TNP Troponin I < 0.012 (0.01-0.034) ng/mL NT-Pro-B Natriuret Pep 339 (<450) pg/mL Total Protein 6.4 (6.3-8.2) g/dL Albumin 3.7 (3.5-5.0) g/dL Globulin 2.7 (1.7-4.1) g/dL Albumin/Globulin Ratio 1.4 (1.0-2.8) Lipase 235 (23-300) U/L Imaging Data Chest x-ray: Radiologist's Impression: [address] [id number] XRay Report Signed Patient: Sae Glass MR#: [id number] : 1935 Acct:[id number] Age/Sex: 86 / M Date of Service: 02/03/21 Loc: ED Accession Number: [id number] ?? Procedure: XR chest 1V Ordering Provider: Bairon Martinez D.O. PROCEDURE:? XR CHEST 1V ? INDICATIONS:? chest pain ? TECHNIQUE:? One view of the chest was acquired.? ? COMPARISON:? [facility], , XR CHEST 1V, 11/23/2020, 12:50. ? FINDINGS:? ? Surgical changes and devices:? None.? ? Lungs and pleura:? Calcified granuloma is again seen in left upper lobe.? Bibasilar atelectasis is seen.? No definite focal infiltrate.? No pleural effusions or pneumothorax.? ? Mediastinum:? Mediastinal contours appear normal.? Heart size is enlarged.? ? Bones and chest wall:? No suspicious bony lesions.? Overlying soft tissues appear unremarkable.? There are suggestion of air distended bowel loops seen under the diaphragm. ? IMPRESSION:? 1. Bibasilar atelectasis and mild pulmonary vascular congestion.? No definite fo jina infiltrate.? No pleural effusion or pneumothorax. 2. Nonspecific air distended bowel loops seen inner the diaphragm. ? ? Dictated by: Trent Dumas M.D. on 02/03/2021 at 14:30 ? ? Approved by: Trent Dumas M.D. on 02/03/2021 at 14:38?? ECG Data Attestation: I personally reviewed and interpreted this ECG as follows: Interpretation: Sinus rhythm Ventricular rate 84 First-degree AV block with a TN interval of 246 milliseconds Incomplete left bundle branch block Frequent PVCs nonspecific ST T wave changes MDM Narrative Medical decision making narrative: Patient is sinus rhythm on his EKG with frequent PACs. It does appear that on the monitor that he may be going in and out of atrial fibrillation. His labs are unremarkable. His blood pressure is much better after fluids. He does feel better. He is recently been on antib iotics which were started yesterday after being diagnosed with a urinary tract infection. He is not having any diarrhea. He states that he is eating and drinking well. He had no symptoms associated with his presyncopal episodes today. He did not have any chest pain or shortness of breath. He was able to ambulate around the emergency department without problems. Had a long discussion with the patient and his . We will hold on changing any of his medications for now. Will have him contact his primary doctor for follow-up. He was given return precautions and follow-up instructions. He expressed understanding and agreement. Discharge Plan Departure Patient Disposition: Home Clinical Impression: Pre-syncope Instructions: DI for Dizziness-Nonvertigo Activity Restrictions/Additional Instructions: Continue all of your medications as directed. Contact your primary provider for a follow-up. Return to the emergency department for any new or worsening symptoms. Prescriptions: No Action atorvastatin 20 mg tablet 10 mg PO DAILY RF: 0 cromolyn 5.2 mg/spray (4 %) spray,non-aerosol 2 spray NASAL TID RF: 0 omega-3 fatty acids [Fish Oil Concentrate] 1,000 mg capsule 1,000 mg PO DAILY RF: 0 aspirin 325 mg tablet 325 mg PO DAILY RF: 0 betamethasone, augmented 0.05 % cream 1 applictn TOP DAILY RF: 0 fexofenadine 180 mg tablet 180 mg PO DAILY RF: 0 tramadol 50 mg tablet 50 mg PO QID RF: 0 lisinopril 10 mg tablet 10 mg PO DAILY RF: 0 niacin 500 mg capsule, extended release 500 mg PO BEDTIME RF: 0 cyclosporine [Restasis] 0.05 % dropperette EYE-BOTH RF: 0 gabapentin 300 mg capsule 300 mg PO TID Qty: 90 RF: 2 Referrals: Markel Brwonlee MD [Primary Care Provider] -
[2021-02-03 14:17] LABS: Add Manual Diff / Slide Review NO; Basophils Absolute Auto 0 /uL (0-100); Basophils Percent Auto 0.5 % (0-2); Eosinophils Absolute Auto 100 /uL (0-450); Eosinophils Percent Auto 0.7 % (2-4); Hematocrit 35.3 % (41-53); Hemoglobin 11.7 g/dL (13.5-17.5); Lymphocytes Absolute Auto 1500 /uL (1100-4500); Lymphocytes Percent Auto 19.8 % (25-40); Mean Corpuscular HGB Conc 33.2 % (30-36); Mean Corpuscular Hemoglobin 31.2 PG (26-34); Monocytes Absolute Auto 600 /uL (0-900); Monocytes Percent Auto 8.6 % (3-14); Neutrophils Absolute Auto 5100 /uL (1500-7000); Neutrophils Percent Auto 70.4 % (50-75); Platelet Count 312 X10^3/uL (150-400); Red Blood Cell Count 3.75 X10^6/uL (4.5-5.9); Red Cell Distribution Width 13.7 % (11.6-14.8); White Blood Cell Count 7.3 X10^3/uL (4.5-11.0)
[2021-02-03 14:28] LABS: Alanine Aminotransferase 16 IU/L (<50); Albumin 3.7 g/dL (3.5-5.0); Albumin Globulin Ratio 1.4 (1.0-2.8); Alkaline Phosphatase 96 U/L (38-126); Aspartate Aminotransferase 20 IU/L (17-59); BUN Creatinine Ratio 18.8 (6-22); Bilirubin Total 0.6 mg/dL (0.2-1.3); Blood Urea Nitrogen 22 mg/dL (9-20); Calcium 9.2 mg/dL (8.4-10.2); Carbon Dioxide 22 mmol/L (22-32); Chloride 100 mmol/L (98-107); Creatine Kinase < 20 U/L (55-170); Estimated Glomerular Filt Rate 59.2 mL/min (>60); Globulin 2.7 g/dL (1.7-4.1); Glucose 220 mg/dL (80-110); HEMOLYSIS < 15 (0-50); Lipase 235 U/L (23-300); Magnesium 1.6 mg/dL (1.6-2.3); Potassium 4.5 mmol/L (3.4-5.1); Sodium 134 mmol/L (137-145); Total Protein 6.4 g/dL (6.3-8.2)
[2021-02-03 14:38] LABS: NT-proBNP (BNP-Adult 18+) 339 pg/mL (<450); Troponin I < 0.012 ng/mL (0.01-0.034)
[2021-02-03] MEDS: SODIUM CHLORIDE 0.9% 1,000 ML 500 ML IV (14:48)
--- NOTE | 2021-02-03 15:41 | PC.NURSE ---
Patient ambulated down the [place] and back with no complaints, states feeling much better.
== END 2021-02-03 16:18 | disposition home or self-care (01) ==
PROVIDERS: Emergency Provider Emergency Medicine; Family Provider Family Medicine; PCP Family Medicine
DX: R55 Syncope and collapse (principal); R42 Dizziness and giddiness; R07.9 Chest pain, unspecified
CPT/HCPCS: 36415; 71045; 80053; 82550; 83690; 83735; 83880; 84484; 85025; 93005; 99284

== ENCOUNTER → 2021-11-23 12:39 | Outpatient (CLI) | payer MEDICARE, OTHER, SELFPAY ==
--- NOTE | 2021-11-23 | DI.ECHO.S_ITS ---
[facility] +---------+ Hospital +---------+ : : [address] : [address] : : : : [id number] : : : : Phone: [phone]+ Echocardiogram Report + + :Name: ANASTACIA VEGA Study Date: 11/23/2021 Height: 73 in : :[facility] ReadingLocation: Weight: 239 lb: : Gender: Male BSA: 2.3 m2 : :: 1935 Age: 86 yrs : :Reason For Study: SHORTNESS OF BREATH : :Ordering Physician: STEPHANIE, : :JENNIFER Performed By: Gina Arellano : :Referring: JENNIFER CERON : + + Interpretation Summary 1) Mildly increased left ventricular thickness (concentric) with normal size with mildly to moderately reduced systolic functoin (EF 40-45%). 2) Normal right ventricular size with mildly reduced function. 3) The left atrium is severely dilated. 4) No significant valvular abnormalities. 5) Compared to the Echo done 11/08/2020, LVEF has decreased from 50-55% to 40- 45% on this study. Procedure: A two-dimensional transthoracic echocardiogram with color flow and Doppler was performed. The study quality was technically difficult. A contrast injection of Definity was performed to improve assessment of LV function. Comparison is made with the echocardiogram of 11/08/2020. The patient was in atrial fibrillation with heart rates between 75-105 bpm during the exam. Left Ventricle: The left ventricle is normal in size. There is mild concentric left ventricular hypertrophy. The ejection fraction is estimated to be 40-45%. There is mild to moderate global hypokinesis of the left ventricle. Diastolic function could not be accurately assessed due to atrial fibrillation. Right Ventricle: The right ventricle is normal size. Right ventricular systolic function is mildly reduced. Atria: The left atrium is severely dilated. Right atrial size is normal. There is no Doppler evidence for an interatrial shunt. Mitral Valve: The mitral valve leaflets are slightly calcified. There is mild mitral annular calcification. There is mild mitral regurgitation. Aortic Valve: The aortic valve is not well visualized. There is no aortic valve stenosis. There is trace aortic regurgitation. Tricuspid Valve: The tricuspid valve is normal in structure and function. There is trace tricuspid regurgitation. Pulmonary artery pressures cannot be estimated because of the lack of a measurable TR jet velocity. Pulmonic Valve: The pulmonic valve is not well visualized. There is no pulmonic valvular regurgitation. Great Vessels: The ascending aorta is at the upper limits of normal in size. The inferior vena cava was not visualized. Pericardium/ Pleura There is no pericardial effusion. There is no pleural effusion. MMode/2D Measurements & Calculations LVIDd: 5.0 cm LVOT diam: 2.7 cm LVIDs: 3.7 cm asc Aorta Diam: 3.7 cm FS: 26.9 % Ao Arch Diam (Prox Trans): 3.4 cm IVSd: 1.0 cm LVPWd: 1.4 cm LV ruiz. diameter/BSA (cm/m^2): 2.2 LV sys. diameter/BSA (cm/m^2): 1.6 LA A2 area: 38.2 cm2 RA long axis: 6.1 cm LA A4 area: 33.6 cm2 RA area: 17.9 cm2 LA length (vol): 7.4 cm RA vol: 44.8 ml LA vol: 147.1 ml RA : 19.3 ml/m2 LA vol index: 63.4 ml/m2 RVD1 (basal): 3.4 cm RVD2 (mid): 3.1 cm TAPSE: 1.5 cm Doppler Measurements & Calculations Ao V2 max: 96.9 cm/sec LVOT Max Christiano: 70.8 cm/sec Ao V2 mean: 73.8 cm/sec LV V1 max P.0 mmHg Ao max P.8 mmHg LV V1 VTI: 12.3 cm Ao mean P.4 mmHg GIOVANNY(I,D): 3.5 cm2 Ao V2 VTI: 19.7 cm GIOVANNY(V,D): 4.1 cm2 sev ratio: 0.63 GIOVANNY indexed to BSA (cm^2/m^2): 1.5 MV E max christiano: 73.2 cm/sec PA V2 max: 68.7 cm/sec MV A max christiano: 2.3 cm/sec PA V2 mean: 47.7 cm/sec MV E/A: 32.4 PA mean P.0 mmHg Med Peak E' Christiano: 4.8 cm/sec E/E' med: 15.1 Lat Peak E' Christiano: 9.6 cm/sec E/E' lat: 7.7 E/e' average: 11.4 MV dec time: 0.19 sec SV(LVOT): 69.3 ml Reading Physician:04:52 PM
== END ==
PROVIDERS: Family Provider Family Medicine; PCP Family Medicine; Referring Provider Internal Medicine Cardiovascular Disease; Visit Provider Internal Medicine Cardiovascular Disease
DX: R06.02 Shortness of breath (principal); I51.7 Cardiomegaly
CPT/HCPCS: C8929; Q9957

== ENCOUNTER → 2022-07-28 11:41 | Outpatient (CLI) | payer MEDICARE, OTHER, SELFPAY ==
--- NOTE | 2022-08-02 10:03 | PM.PFT.1 ---
Pulmonary Function Test Referral & Results Date Patient Seen: 07/28/22 Requesting provider: Markel Brownlee Results: The spirometry demonstrates an FVC of 1.64 L which is 42% of predicted. The FEV1 was measured at 1.07 L which is 39% of predicted. The FEV1/FVC ratio was 65 which is 93% of predicted. Following the administration of bronchodilator there was a 30% improvement in FEV1 and a 113% improvement in FEF 25-75%. Lung volumes show an SVC of 2.11 L which is 47% of predicted. The diffusing capacity was measured at 16.51 which is 49% of predicted. No hemoglobin value was provided, so no correction for potential anemia could be made, if appropriate. The maximum voluntary ventilation was reduced Interpretation: This study demonstrates severe obstructive lung disease based on reduction FEV1 although FEV1/FVC ratio is relatively preserved. There is evidence of significant benefit following bronchodilator administration as above There is also moderately severe reduction in lung volumes suggesting the presence of significant restrictive lung disease There is also moderate reduction in diffusing capacity suggesting disease at the capillary alveolar level Altogether this is consistent with a diagnosis of COPD although clinical correlation is suggested
== END ==
PROVIDERS: Family Provider Family Medicine; PCP Family Medicine; Referring Provider Family Medicine; Visit Provider Family Medicine
DX: R06.09 Other forms of dyspnea (principal); J98.8 Other specified respiratory disorders
CPT/HCPCS: 94060; 94726; 94729

== ENCOUNTER → 2023-04-24 13:30 | Outpatient (CLI) | payer MEDICARE, OTHER, SELFPAY ==
--- NOTE | 2023-04-24 13:33 | DI.RAD.S_ITS ---
PROCEDURE: XR CHEST 2V INDICATIONS: Other forms of dyspnea TECHNIQUE: 2 views of the chest were acquired. COMPARISON: [facility], , CHEST 2 VIEW, 03/07/2017, 10:50. [facility], , XR CHEST 1V, 02/03/2021, 14:07. FINDINGS: Surgical changes and devices: None. Lungs and pleura: Probably calcified pleural plaques bilaterally. Left basilar atelectasis. No pleural effusions or pneumothorax. Mediastinum: Mediastinal contours are normal. Heart size is normal. Bones and chest wall: No suspicious bony abnormalities. Soft tissues appear unremarkable. IMPRESSION: 1. No acute cardiopulmonary abnormality is seen. 2. Suspect calcified pleural plaques bilaterally. Consider chest CT for follow up evaluation 3. Left basilar atelectasis. Dictated by: Binu Clark M.D. on 04/24/2023 at 19:23 Approved by: Binu Clark M.D. on 04/24/2023 at 19:24
== END ==
PROVIDERS: Family Provider Family Medicine; PCP Family Medicine; Referring Provider Family Medicine; Visit Provider Family Medicine
DX: R06.09 Other forms of dyspnea (principal); J98.11 Atelectasis
CPT/HCPCS: 71046

== ENCOUNTER → 2023-05-31 06:43 | Outpatient (CLI) | payer MEDICARE, OTHER, SELFPAY ==
--- NOTE | 2023-05-31 06:45 | DI.ECHO.S_ITS ---
[facility] +---------+ Hospital +---------+ : : [address] : : : [place] : : : : [id number] : : : : Phone: [phone]+ Echocardiogram Report + + :Name: ANASTACIA VEGA Study Date: 05/31/2023 Height: 71 in : :[facility] ReadingLocation: Weight: 216 lb : : Gender: Male BSA: 2.2 m2 : :: 1935 Age: 88 yrs BP: 104/60 mmHg: :Reason For Study: ATRIAL FIBRILLATION : :Ordering Physician: JESSE, : :TONNY Performed By: Gina Arellano : :Referring: TONNY MOLINA : + + Interpretation Summary 1) Mildly increased left ventricular thickness (concentric) with normal size with mildly to moderately reduced systolic functoin (EF 40-45%). 2) Upper normal right ventricular size with mildly reduced function. 3) The left atrium is severely dilated. 4) No significant valvular abnormalities. 5) Compared to the Echo done 11/23/2021, no significant change. Procedure: A two-dimensional transthoracic echocardiogram with color flow and Doppler was performed. The study quality was technically adequate. Comparison is made with the echocardiogram of 11/23/2021. The patient was in atrial fibrillation with heart rates between 74-111 bpm during the exam. Left Ventricle: The left ventricle is normal in size. Left ventricular wall thickness is mildly increased. The ejection fraction is estimated to be 40- 45%. There is mild to moderate global hypokinesis of the left ventricle. Diastolic function could not be accurately assessed due to atrial fibrillation. Right Ventricle: The right ventricle is at the upper limits of normal in size. Right ventricular systolic function is mildly reduced. Atria: The left atrium is severely dilated. Right atrial size is normal. There is no Doppler evidence for an interatrial shunt. Mitral Valve: The mitral valve is normal in structure and function. There is mild mitral regurgitation. Aortic Valve: The aortic valve is trileaflet. The aortic valve is mildly calcified. There is no aortic valve stenosis. There is trace aortic regurgitation. Tricuspid Valve: The tricuspid valve is normal in structure and function. There is mild tricuspid regurgitation. The right ventricular systolic pressure is estimated to be at least 33 mmHg based on an estimated right atrial pressure of 3 mm Hg. Pulmonic Valve: The pulmonic valve is not well visualized. There is mild pulmonic regurgitation. Great Vessels: The aortic root is mildly dilated. The dimensions of the ascending aorta are normal. The IVC is of normal diameter and collapses greater than 50% with a sniff. This suggests a low right atrial pressure of 3 mm Hg. Pericardium/ Pleura There is no pericardial effusion. There is no pleural effusion. MMode/2D Measurements & Calculations LVIDd: 5.2 cm LVOT diam: 2.3 cm LVIDs: 3.0 cm Ao root diam: 4.2 cm FS: 42.0 % asc Aorta Diam: 3.6 cm EPSS: 0.40 cm IVSd: 0.86 cm LVPWd: 1.2 cm LV ruiz. diameter/BSA (cm/m^2): 2.4 LV sys. diameter/BSA (cm/m^2): 1.4 LA A2 area: 35.3 cm2 RA long axis: 6.3 cm LA A4 area: 29.4 cm2 RA area: 18.2 cm2 LA length (vol): 6.9 cm RA vol: 44.6 ml LA vol: 127.1 ml RA : 20.5 ml/m2 LA vol index: 58.3 ml/m2 IVC diam: 1.9 cm RVD1 (basal): 4.0 cm RVD2 (mid): 3.9 cm TAPSE: 1.4 cm Doppler Measurements & Calculations Ao V2 max: 98.7 cm/sec LVOT Max Christiano: 74.2 cm/sec Ao V2 mean: 75.6 cm/sec LV V1 max P.2 mmHg Ao max P.0 mmHg LV V1 VTI: 14.3 cm Ao mean P.5 mmHg GIOVANNY(I,D): 2.9 cm2 Ao V2 VTI: 19.8 cm GIOVANNY(V,D): 3.0 cm2 sev ratio: 0.72 GIOVANNY indexed to BSA (cm^2/m^2): 1.3 MV E max christiano: 77.9 cm/sec TR max christiano: 272.5 cm/sec MV A max christiano: 1.4 cm/sec TR max P.7 mmHg MV E/A: 54.4 PA V2 max: 94.3 cm/sec Med Peak E' Christiano: 5.5 cm/sec PA V2 mean: 67.1 cm/sec E/E' med: 14.1 PA mean P.9 mmHg Lat Peak E' Christiano: 8.5 cm/sec PA pr(Accel): 48.2 mmHg E/E' lat: 9.2 E/e' average: 11.7 MV dec time: 0.21 sec [facility]): 57.4 ml Reading Physician:04:26 PM
== END ==
LOC: ECHO 06:44
PROVIDERS: Family Provider Family Medicine; PCP Family Medicine; Referring Provider Family Medicine; Visit Provider Family Medicine
DX: I08.1 Rheumatic disorders of both mitral and tricuspid valves (principal); I48.11 Longstanding persistent atrial fibrillation; I77.810 Thoracic aortic ectasia
CPT/HCPCS: 93306

== ENCOUNTER 2023-06-07 13:27 | Inpatient (IN) | payer MEDICARE, OTHER, SELFPAY ==
[2023-06-07] VITALS (79 sets, daily range): BP systolic 86–139; BP diastolic 40–76; PULSE 85–135; RESP 17–40; TEMP 36.4–36.9; O2SAT 91–99; BMI 32.1; BMI 31.1
--- NOTE | 2023-06-07 13:38 | DI.RAD.S_ITS ---
PROCEDURE: XR CHEST 1V INDICATIONS: suspected sepsis TECHNIQUE: One view of the chest was acquired. COMPARISON: [facility], CR, XR CHEST 2V, 04/24/2023, 14:45. FINDINGS: Surgical changes and devices: None. Lungs and pleura: Lungs are clear. No pleural effusions or pneumothorax. Mediastinum: Mediastinal contours appear normal. Heart size is normal. Bones and chest wall: No suspicious bony lesions. Overlying soft tissues appear unremarkable. IMPRESSION: No acute cardiopulmonary abnormality is seen. Dictated by: Elizabeth Fields M.D. on 06/07/2023 at 13:59 Approved by: Elizabeth Fields M.D. on 06/07/2023 at 13:59
[2023-06-07] MEDS: SODIUM CHLORIDE 0.9% 1,000 ML 1000 ML IV ×2 (13:49→14:47)
[2023-06-07 13:56] LABS: Add Manual Diff / Slide Review NO; Basophils Absolute Auto 100 /uL (0-100); Basophils Percent Auto 0.8 % (0-2); Eosinophils Absolute Auto 100 /uL (0-450); Eosinophils Percent Auto 0.9 % (2-4); Hematocrit 36.1 % (41-53); Hemoglobin 11.8 g/dL (13.5-17.5); Lymphocytes Absolute Auto 2600 /uL (1100-4500); Lymphocytes Percent Auto 34.5 % (25-40); Mean Corpuscular HGB Conc 32.6 % (30-36); Mean Corpuscular Hemoglobin 31.4 PG (26-34); Mean Corpuscular Volume 96.6 fL (80-100); Monocytes Absolute Auto 600 /uL (0-900); Monocytes Percent Auto 8.4 % (3-14); Neutrophils Absolute Auto 4300 /uL (1500-7000); Neutrophils Percent Auto 55.4 % (50-75); Platelet Count 301 X10^3/uL (150-400); Red Blood Cell Count 3.74 X10^6/uL (4.5-5.9); Red Cell Distribution Width 14.2 % (11.6-14.8); White Blood Cell Count 7.7 X10^3/uL (4.5-11.0)
--- NOTE | 2023-06-07 14:03 | DI.CT.S_ITS ---
PROCEDURE: CT CERVICAL SPINE WO CON INDICATIONS: hypotensive, fall x 2, no bm x 8 days, tender abd TECHNIQUE: Noncontrast 3 mm thick sections acquired from the skull base to the T4 level. Sagittal and coronal reformats were then constructed. For radiation dose reduction, the following was used: automated exposure control, adjustment of mA and/or kV according to patient size. COMPARISON: None. FINDINGS: Image quality: Excellent. Bones: No fractures or dislocations. Visualized superior ribs are intact. Soft tissues: Prevertebral soft tissues are normal in thickness. No paravertebral hematomas. No apical pneumothoraces. IMPRESSION: No acute fracture. No osseous lesion. If symptoms and/or clinical suspicion for pathology persist, further assessment with MRI or bone scan may be helpful for further assessment. Dictated by: Elizabeth Fields M.D. on 06/07/2023 at 14:33 Approved by: Elizabeth Fields M.D. on 06/07/2023 at 14:36
--- NOTE | 2023-06-07 14:03 | DI.RAD.S_ITS ---
PROCEDURE: XR ABDOMEN MIN 2V INDICATIONS: hypotensive, fall x 2, no bm x 8 days, tender abd TECHNIQUE: 2 views of the abdomen were acquired. COMPARISON: None. FINDINGS: Surgical changes and devices: None. Bowel: No pneumoperitoneum. The bowel gas pattern is normal. Soft tissues: No masses; visualized solid organ contours appear normal in size. No suspicious abdominal calcifications. Bones: No suspicious bony abnormalities. IMPRESSION: Non-obstructive bowel gas pattern. Dictated by: Elizabeth Fields M.D. on 06/07/2023 at 14:37 Approved by: Elizabeth Fields M.D. on 06/07/2023 at 14:38
--- NOTE | 2023-06-07 14:03 | DI.CT.S_ITS ---
PROCEDURE: CT HEAD/BRAIN WO CON INDICATIONS: hypotensive, fall x 2, no bm x 8 days, tender abd TECHNIQUE: Noncontrast 4.5 mm thick angled axial sections acquired from the foramen magnum to the vertex, with coronal and sagittal reformats. For radiation dose reduction, the following was used: automated exposure control, adjustment of mA and/or kV according to patient size. COMPARISON: None. FINDINGS: Image quality: Diagnostic. CSF spaces: Basal cisterns are patent. No extra-axial fluid collections. The ventricles are symmetric in size and shape. Brain: No intracranial bleeds or masses. There is cerebral volume loss for age, with resultant ventricular and sulcal prominence. There are periventricular and deep white matter chronic small vessel ischemic changes. There is intracranial internal carotid artery atherosclerosis. Skull and face: Calvarium and visualized facial bones appear intact, without suspicious lesions. Sinuses: Visualized sinuses and mastoids are clear. IMPRESSION: No acute intracranial pathology. Dictated by: Elizabeth Fields M.D. on 06/07/2023 at 14:32 Approved by: Elizabeth Fields M.D. on 06/07/2023 at 14:33
[2023-06-07 14:16] LABS: INR 1.3 (0.9-1.3); Prothrombin Time 15.4 SECONDS (9.4-12.5)
[2023-06-07 14:19] LABS: PTT Partial Thromboplastin Tim 26 SECONDS (25.1-36.5)
[2023-06-07 14:24] LABS: Albumin Globulin Ratio 1.3 (1.0-2.8); Alkaline Phosphatase 80 U/L (38-126); Aspartate Aminotransferase 25 IU/L (17-59); BUN Creatinine Ratio 19.3 (6-22); Blood Urea Nitrogen 27 mg/dL (9-20); Carbon Dioxide 17 mmol/L (22-32); Chloride 99 mmol/L (98-107); Creatine Kinase < 20 U/L (55-170); Estimated Glomerular Filt Rate 49 mL/min (>60); Glucose 184 mg/dL (80-110); HEMOLYSIS < 15 (0-50); Lipase 64 U/L (23-300); Potassium 4.1 mmol/L (3.4-5.1); Sodium 136 mmol/L (137-145)
--- NOTE | 2023-06-07 14:28 | ED_ITS ---
HPI - Weakness General Chief complaint: Weakness Stated complaint: Multi GLF, Weakness, +Orthostatics, UTI Time Seen by Provider: 06/07/23 14:28 Source: patient and EMS Mode of arrival: EMS Limitations: no limitations History of Present Illness HPI Narrative: 88-year-old male with history of atrial fibrillation on thinners, hypertension, dyslipidemia, diabetes type 2 who has been hypotensive over the past 1-2 weeks and had his metoprolol stopped recently. Patient had sounds like a syncopal episode today. He was constipated has been for about 8 days has not had a bowel movement. He has been passing some flatus. He denies any abdominal back or flank pain. Denies any urinary symptoms. No fevers no chills, mild headache. He has not abrasion on his forehead she states was from his fall. No chest pain, has normal shortness of breath she isn't any worse than his baseline according to him and his . Denies any nausea no vomiting. Denies any incontinence of bowel or bladder. States he is currently on an antibiotic for UA but isn't currently having any urinary symptoms. Denies any abdominal back or flank pain. States no new weakness or difficulty with movement. Patient was constipated went to the bathroom lost balance fell on his way back to his chair. Pull himself back up to the chair. Attempted go the bathroom again was unsuccessful headed back towards his chair felt lightheaded and dizzy and had sounds like a loss of consciousness hitting his forehead describes it as several seconds. Patient states he is on medication for atrial fibrillation including thinners, no prior heart attacks or strokes, no prior cardiac stents. Was on metoprolol for his AFib and hypertension but was stopped several days ago secondary to low blood pressure. Typically runs 120s but has been running in the 100-105 range for the past week. Is still on lisinopril, takes a statin daily, metformin for diabetes no reported CKD. Was on furosemide recently but had completed his prescription. No known drug allergies. No tobacco, occasional alcohol, no recreational drugs. Accompanied by his . Dr. Brownlee is his primary care. Dr. Ceron is his leather case finisher. Related Data Home Medications Medication Instructions Recorded Confirmed atorvastatin 20 mg tablet 10 mg PO DAILY 10/12/17 01/18/18 betamethasone, augmented 0.05 % 1 applictn topical DAILY 10/12/17 01/18/18 topical cream cromolyn 5.2 mg/spray (4 %) nasal 2 spray intranasal TID 10/12/17 01/18/18 spray cyclosporine 0.05 % eye drops in a EYE-BOTH 10/12/17 01/18/18 dropperette (Restasis) fexofenadine 180 mg tablet 180 mg PO DAILY 10/12/17 01/18/18 lisinopril 10 mg tablet 10 mg PO DAILY 10/12/17 01/18/18 niacin 500 mg capsule,extended 500 mg PO BEDTIME 10/12/17 01/18/18 release omega-3 fatty acids 1,000 mg 1,000 mg PO DAILY 10/12/17 01/18/18 capsule (Fish Oil Concentrate) tramadol 50 mg tablet 50 mg PO QID 10/12/17 01/18/18 gabapentin 300 mg capsule 300 mg PO DAILY 06/07/23 06/07/23 Allergies Allergy/AdvReac Type Severity Reaction Status Date / Time No Known Drug Allergies Allergy Verified 06/07/23 13:40 Review of Systems Review of Systems ROS Unobtainable: All systems reviewed & are unremarkable except as noted in HPI and below Patient History Medical History Atrial fibrillation Diabetes Asthma Surgical History Previous back surgery Family History Father No problems noted. Mother No problems noted. Social History Smoking Status: Never smoker Smoking Status: Never smoker alcohol intake frequency: holidays/special occasions only Substance Use Type: does not use Exam Narrative Exam Narrative: GEN: Patient appears in mild distress. HEAD: Patient has a abrasion on anterior forehead in the midline no ecchymosis,, no raccoon/Ramirez sign. NECK: Nontender, painless range of motion, trachea midline Negative for Nexus criteria, no midline line tenderness, distracting injury, altered mental status, neuro deficit, recent EtOH. EYES: PERRLA, EOMI ENT: External inspection normal, trachea is midline, TM's are normal no hemotypanum, Nares are clear, no septal hematoma, no dental or oral injury, airway is normal and with normal occlusion, No bony tenderness RESP: Chest is nontender and has symmetric movement, no ecchymosis, breath sounds are normal no crackles, wheezes or rales CVS: Heart sounds are normal, no murmur noted, No JVD. ABG/GI: Nontender, soft, normal bowel sounds, no distention, no organomegaly, pelvic rock is negative. NEURO: Oriented AOx3, neuro is grossly intact, sensation and motor is normal all 4 extremities moving, cranial nerves II through XII are intact, GCS is 15. PSYCH: Normal mood and affect SKIN: Patient has several small abrasions on forehead, right chest, arm but no lacerations, warm and dry, no crepitus and without decubitus BACK: No CVA tenderness, no vertebral tenderness, no step-off's, no crepitus EXT: Atraumatic, hips are nontender, no pedal edema, normal color and temperature, normal range of motion of extremities with normal tendon exam, 2+ pulses in all four extremities Initial Vital Signs Initial Vital Signs: Vital Signs Temperature 98.5 F 06/07/23 13:29 Pulse Rate 104 H 06/07/23 13:29 Respiratory Rate 18 06/07/23 13:29 Blood Pressure 88/40 L 06/07/23 13:29 Pulse Oximetry 98 06/07/23 13:29 Oxygen Delivery Method Room Air 06/07/23 13:29 Course Orders Ordered: ED Orders 06/07/23 13:25 BNP [NT-proBNP (BNP-Adult 18+)] Stat Complete Blood Count AUTO DIFF Stat Comprehensive Metabolic Panel Stat Lactate (Lactic Acid) Stat Lipase Stat PTT Partial Thromboplastin Dominick Stat Procalcitonin Stat Prothrombin Time INR Stat Troponin & CK Cardiac Panel Stat 06/07/23 13:38 XR chest 1V Stat EKG-12 Lead Stat RT Consult Eval and Treat NOW 06/07/23 13:40 Blood Culture Stat Covid-19 + FLU A/B + RSV - PCR Stat 06/07/23 14:03 CT cervical spine wo con Stat CT head/brain wo con Stat XR abdomen min 2V Stat 06/07/23 14:47 CT chest abd pel w con Stat 06/07/23 15:42 UA Complete [Urinalysis and Microscopic] Stat Urine Culture Stat Ondansetron HCl (Ondansetron 4 Mg/2 Ml Inj) 4 mg IV NOW PRN PRN Reason: Nausea And Vomiting Ondansetron HCl (Ondansetron 4 Mg Odt) 4 mg SL NOW PRN PRN Reason: Nausea And Vomiting Discontinued Medications Sodium Chloride (Normal Saline 0.9%) 1,000 mls @ 1,000 mls/hr IV BOLUS ONE Stop: 06/07/23 14:37 Last Infusion: 06/07/23 14:27 Dose: Infused Documented By: Admin: 06/07/23 13:49 Dose: 1,000 mls/hr Documented By: JEREMY Sodium Chloride (Normal Saline 0.9%) 1,000 mls @ 1,000 mls/hr IV BOLUS ONE Stop: 06/07/23 15:45 Last Infusion: 06/07/23 15:49 Dose: Infused Documented By: Admin: 06/07/23 14:47 Dose: 1,000 mls/hr Documented By: SHERMAN Ceftriaxone Sodium 2,000 mg/ (Sodium Chloride) 100 mls @ 200 mls/hr IV NOW ONE Stop: 06/07/23 14:59 Last Infusion: 06/07/23 15:44 Dose: Infused Documented By: Admin: 06/07/23 15:04 Dose: 200 mls/hr Documented By: SHERMAN Lidocaine HCl (Lidocaine 2% (Glydo) 6 Ml Gel) 6 ml TOP NOW ONE Stop: 06/07/23 14:36 Last Admin: 06/07/23 14:37 Dose: 6 ml Documented By: SHERMAN Vital Signs Vital signs: Vital Signs - 8 hr 06/07/23 13:29 06/07/23 13:32 06/07/23 13:33 Temperature 98.5 F Pulse Rate 104 H 93 H Respiratory Rate 18 Blood Pressure 88/40 L 88/51 L Pulse Oximetry 98 98 Oxygen Delivery Method Room Air 06/07/23 13:33 06/07/23 13:35 06/07/23 13:36 Temperature Pulse Rate 93 H 104 H 103 H Respiratory Rate 24 22 Blood Pressure Pulse Oximetry 98 99 98 Oxygen Delivery Method Room Air 06/07/23 13:36 06/07/23 13:40 06/07/23 13:40 Temperature Pulse Rate 105 H Respiratory Rate 26 H Blood Pressure 94/54 L 86/49 L Pulse Oximetry 97 Oxygen Delivery Method 06/07/23 13:45 06/07/23 13:50 06/07/23 13:55 Temperature Pulse Rate 99 H Respiratory Rate 26 H Blood Pressure 96/59 L 95/51 L Pulse Oximetry 99 Oxygen Delivery Method 06/07/23 13:55 06/07/23 14:00 06/07/23 14:00 Temperature Pulse Rate 104 H 96 H Respiratory Rate 19 26 H Blood Pressure 97/50 L Pulse Oximetry 99 97 Oxygen Delivery Method 06/07/23 14:04 06/07/23 14:05 06/07/23 14:05 Temperature Pulse Rate 98 H 94 H Respiratory Rate 21 27 H Blood Pressure 100/55 L Pulse Oximetry 99 98 Oxygen Delivery Method 06/07/23 14:29 06/07/23 14:29 06/07/23 14:30 Temperature Pulse Rate 98 H Respiratory Rate 22 Blood Pressure 94/56 L 108/51 L Pulse Oximetry 95 Oxygen Delivery Method 06/07/23 14:30 06/07/23 14:35 06/07/23 14:35 Temperature Pulse Rate 106 H 111 H Respiratory Rate 23 Blood Pressure 102/58 L Pulse Oximetry 96 95 Oxygen Delivery Method Room Air 06/07/23 14:40 06/07/23 14:40 06/07/23 14:45 Temperature Pulse Rate 111 H Respiratory Rate 23 Blood Pressure 106/60 98/54 L Pulse Oximetry 96 Oxygen Delivery Method 06/07/23 14:45 06/07/23 14:50 06/07/23 14:50 Temperature Pulse Rate 111 H 106 H Respiratory Rate 25 H 19 Blood Pressure 106/59 L Pulse Oximetry 95 95 Oxygen Delivery Method 06/07/23 14:59 06/07/23 15:00 06/07/23 15:05 Temperature 97.6 F Pulse Rate 85 97 H 124 H Respiratory Rate 23 22 Blood Pressure Pulse Oximetry 91 96 94 Oxygen Delivery Method 06/07/23 15:10 06/07/23 15:15 06/07/23 15:20 Temperature Pulse Rate 119 H 135 H 116 H Respiratory Rate 23 35 H 37 H Blood Pressure Pulse Oximetry 94 94 Oxygen Delivery Method 06/07/23 15:25 06/07/23 15:30 06/07/23 15:35 Temperature Pulse Rate 120 H 111 H 104 H Respiratory Rate 24 24 23 Blood Pressure Pulse Oximetry 97 96 99 Oxygen Delivery Method 06/07/23 15:40 06/07/23 15:44 06/07/23 15:44 Temperature Pulse Rate 108 H 112 H Respiratory Rate 26 H 24 Blood Pressure 104/58 L Pulse Oximetry 98 97 Oxygen Delivery Method Room Air 06/07/23 15:45 06/07/23 15:45 06/07/23 15:50 Temperature Pulse Rate 101 H Respiratory Rate 20 Blood Pressure 96/51 L 105/55 L Pulse Oximetry 97 Oxygen Delivery Method 06/07/23 15:50 06/07/23 15:55 06/07/23 15:55 Temperature Pulse Rate 111 H 110 H Respiratory Rate 26 H 26 H Blood Pressure 103/53 L Pulse Oximetry 98 97 Oxygen Delivery Method 06/07/23 16:00 06/07/23 16:00 06/07/23 16:04 Temperature Pulse Rate 103 H 106 H Respiratory Rate 25 H Blood Pressure 97/51 L Pulse Oximetry 96 96 Oxygen Delivery Method 06/07/23 16:05 06/07/23 16:05 06/07/23 16:10 Temperature Pulse Rate 100 H Respiratory Rate Blood Pressure 99/58 L 107/67 Pulse Oximetry 97 Oxygen Delivery Method 06/07/23 16:10 06/07/23 16:15 06/07/23 16:15 Temperature Pulse Rate 107 H 107 H Respiratory Rate 23 20 Blood Pressure 105/72 Pulse Oximetry 97 96 Oxygen Delivery Method 06/07/23 16:20 06/07/23 16:20 06/07/23 16:25 Temperature Pulse Rate 106 H 109 H Respiratory Rate 20 29 H Blood Pressure 116/58 L Pulse Oximetry 95 96 Oxygen Delivery Method 06/07/23 16:27 06/07/23 16:27 06/07/23 16:30 Temperature Pulse Rate 108 H Respiratory Rate 28 H Blood Pressure 110/53 L 109/56 L Pulse Oximetry 99 Oxygen Delivery Method 06/07/23 16:30 06/07/23 16:40 06/07/23 16:40 Temperature Pulse Rate 117 H 118 H Respiratory Rate 25 H 26 H Blood Pressure 109/53 L Pulse Oximetry 98 95 Oxygen Delivery Method Room Air 06/07/23 16:45 06/07/23 16:46 06/07/23 16:46 Temperature Pulse Rate 113 H 109 H Respiratory Rate 23 17 Blood Pressure 116/61 Pulse Oximetry 99 99 Oxygen Delivery Method 06/07/23 16:50 06/07/23 16:50 06/07/23 16:55 Temperature Pulse Rate 120 H Respiratory Rate 25 H Blood Pressure 98/62 99/58 L Pulse Oximetry 99 Oxygen Delivery Method 06/07/23 16:55 06/07/23 17:00 06/07/23 17:00 Temperature Pulse Rate 95 H 113 H Respiratory Rate 20 24 Blood Pressure 104/63 Pulse Oximetry 99 97 Oxygen Delivery Method 06/07/23 17:05 06/07/23 17:05 06/07/23 17:10 Temperature Pulse Rate 118 H Respiratory Rate 26 H Blood Pressure 102/60 104/68 Pulse Oximetry 98 Oxygen Delivery Method 06/07/23 17:10 06/07/23 17:15 06/07/23 17:15 Temperature Pulse Rate 112 H 117 H Respiratory Rate 27 H 25 H Blood Pressure 109/69 Pulse Oximetry 98 98 Oxygen Delivery Method 06/07/23 17:20 06/07/23 17:20 Temperature Pulse Rate 120 H Respiratory Rate 25 H Blood Pressure 118/65 Pulse Oximetry 99 Oxygen Delivery Method MDM - Weakness Lab Data 06/07/23 13:25 06/07/23 13:25 Labs: Lab Results 06/07/23 06/07/23 06/07/23 Range/Units 13:25 13:40 15:42 WBC 7.7 (4.5-11.0) X10^3/uL RBC 3.74 L (4.5-5.9) X10^6/uL Hgb 11.8 L (13.5-17.5) g/dL Hct 36.1 L (41-53) % MCV 96.6 (80-100) fL MCH 31.4 (26-34) PG MCHC 32.6 (30-36) % RDW 14.2 (11.6-14.8) % Plt Count 301 (150-400) X10^3/uL Neut % (Auto) 55.4 (50-75) % Lymph % (Auto) 34.5 (25-40) % [place] % (Auto) 8.4 (3-14) % Eos % (Auto) 0.9 L (2-4) % Baso % (Auto) 0.8 (0-2) % Neut # (Auto) 4300 (9046-3653) /uL Lymph # (Auto) 2600 (6717-3725) /uL [place] # (Auto) 600 (0-900) /uL Eos # (Auto) 100 (0-450) /uL Baso # (Auto) 100 (0-100) /uL PT 15.4 H (9.4-12.5) SECONDS INR 1.3 (0.9-1.3) APTT 26 (25.1-36.5) SECONDS Sodium 136 L (137-145) mmol/L Potassium 4.1 (3.4-5.1) mmol/L Chloride 99 (98-107) mmol/L Carbon Dioxide 17 L (22-32) mmol/L BUN 27 H (9-20) mg/dL Creatinine 1.40 H (0.66-1.25) mg/dL Estimated GFR 49 L (>60) mL/min BUN/Creatinine Ratio 19.3 (6-22) Glucose 184 H (80-110) mg/dL Lactate 11.4 H* 4.4 H* (0.7-2.1) mmol/L Calcium 9.0 (8.4-10.2) mg/dL Total Bilirubin 1.0 (0.2-1.3) mg/dL AST 25 (17-59) IU/L ALT 29 (<50) IU/L Alkaline Phosphatase 80 (38-126) U/L Total Creatine Kinase < 20 L (55-170) U/L Troponin I < 0.012 (0.01-0.034) ng/mL NT-Pro-B Natriuret Pep 2620 H (<450) pg/mL Total Protein 7.0 (6.3-8.2) g/dL Albumin 4.0 (3.5-5.0) g/dL Globulin 3.0 (1.7-4.1) g/dL Albumin/Globulin Ratio 1.3 (1.0-2.8) Lipase 64 (23-300) U/L Procalcitonin 0.07 (<0.5) ng/mL Urine Color Yellow Urine Appearance Clear Urine pH 5.5 (4.5-8.0) Ur Specific [place] 1.020 (1.000-1.035) Urine Protein Negative (Negative) Urine Glucose (UA) Negative (Negative) g/dL Urine Ketones Trace H (NEGATIVE) Urine Occult Blood Trace-intact (Negative) Urine Nitrate Negative (Negative) Urine Bilirubin Negative (NEGATIVE) Urine Urobilinogen 0.2 (0.2) E.U./dL Ur Leukocyte Esterase Trace H (NEGATIVE) Urine RBC 1-5/hpf (0-5/HPF) Urine WBC 1-5/hpf (0-5/HPF) Ur Squamous Epith Cells 1-5 /hpf (0-5/HPF) Urine Bacteria None seen (None) Hyaline Casts 1-5/lpf (None) Ur Culture Indicated? Specimen cultured SARS-CoV-2 (PCR) Negative (Negative) Influenza A (RT-PCR) Flu a negative (NEGATIVE) Influenza B (RT-PCR) Flu b negative (NEGATIVE) RSV (PCR) Negative (Negative) Urine Dip Bedside Urine Glucose Negative Bedside Urine Bilirubin - Negative Bedside Urine Ketone - Negative Urine Specific [place] 1.015 Bedside Urine Occult Blood + Bedside Urine pH 6.0 Bedside Urine Protein - Negative Bedside Urine Urobilinogen - Negative Bedside Urine Nitrite - Negative Bedside Urine Leukocytes +/- [address] scan - head: Radiologist Impression: [place] [address] CT Scan Report Signed Patient: Sae Glass MR#: [id number] : 1935 Acct:[id number] Age/Sex: 88 / M Date of Service: 06/07/23 Loc: ED Accession Number: [id number] Procedure: CT head/brain wo con Ordering Provider: Kelsy Morris D.O. PROCEDURE: CT HEAD/BRAIN WO CON INDICATIONS: hypotensive, fall x 2, no bm x 8 days, tender abd TECHNIQUE: Noncontrast 4.5 mm thick angled axial sections acquired from the foramen magnum to the vertex, with coronal and sagittal reformats. For radiation dose reduction, the following was used: automated exposure control, adjustment of mA and/or kV according to patient size. COMPARISON: None. FINDINGS: Image quality: Diagnostic. CSF spaces: Basal cisterns are patent. No extra-axial fluid collections. The ventricles are symmetric in size and shape. Brain: No intracranial bleeds or masses. There is cerebral volume loss for age, with resultant ventricular and sulcal prominence. There are periventricular and deep white matter chronic small vessel ischemic changes. There is intracranial internal carotid artery atherosclerosis. Skull and face: Calvarium and visualized facial bones appear intact, without suspicious lesions. Sinuses: Visualized sinuses and mastoids are clear. IMPRESSION: No acute intracranial pathology. Dictated by: Elizabeth Fields M.D. on 06/07/2023 at 14:32 Approved by: Elizabeth Fields M.D. on 06/07/2023 at 14:33 CT - cervical spine: Radiologist Impression: Sae Glass??88??M??1935 ? Allergy/Adv: No Known Drug Allergies Close Head CT (Signed) Elizabeth Fields - 06/07/[address] (Signed) Elizabeth Fields - 06/07/23 Abdomen X-Ray (Signed) Salomon Fieldsoumou - 06/07/23 Chest X-Ray (Signed) Salomon Fields - 06/07/23 Echocardiogram Ultrasound (Signed) Zac Ceron - 05/31/23 Chest X-Ray (Signed) Binu Clark - 04/24/23 PFT Result 07/28/22 Chest X-Ray (Signed) Trent Dumas - 02/03/21 Chest X-Ray (Signed) Niko Saab - 11/23/20 Echocardiogram Ultrasound (Signed) Zac Ceron - 11/08/[address] (Signed) Robert Wei - 11/17/19 Ankle X-Ray (Signed) Cristhian Reveles - 05/30/18 Injection Lumbar, Sacrum (Signed) Darvin Bellamy - 12/26/17 Injection Lumbar, Sacrum (Signed) Darvin Bellamy - 10/30/17 Launch?[place] [address] CT Scan Report Signed Patient: Sae Glass MR#: [id number] : 1935 Acct:[id number] Age/Sex: 88 / M Date of Service: 06/07/23 Loc: ED Accession Number: [id number] Procedure: CT cervical spine wo con Ordering Provider: Kelsy Morris D.O. PROCEDURE: CT CERVICAL SPINE WO CON INDICATIONS: hypotensive, fall x 2, no bm x 8 days, tender abd TECHNIQUE: Noncontrast 3 mm thick sections acquired from the skull base to the T4 level. Sagittal and coronal reformats were then constructed. For radiation dose reduction, the following was used: automated exposure control, adjustment of mA and/or kV according to patient size. COMPARISON: None. FINDINGS: Image quality: Excellent. Bones: No fractures or dislocations. Visualized superior ribs are intact. Soft tissues: Prevertebral soft tissues are normal in thickness. No paravertebral hematomas. No apical pneumothoraces. IMPRESSION: No acute fracture. No osseous lesion. If symptoms and/or clinical suspicion for pathology persist, further assessment with MRI or bone scan may be helpful for further assessment. Dictated by: Elizabeth Fields M.D. on 06/07/2023 at 14:33 Approved by: Elizabeth Fields M.D. on 06/07/2023 at 14:36 Abdominal x-ray: Radiologist Impression: [address] [address] XRay Report Signed Patient: Sae Glass MR#: [id number] : 1935 Acct:[id number] Age/Sex: 88 / M Date of Service: 06/07/23 Loc: ED Accession Number: [id number] Procedure: XR abdomen min 2V Ordering Provider: Kelsy Morris D.O. PROCEDURE: XR ABDOMEN MIN 2V INDICATIONS: hypotensive, fall x 2, no bm x 8 days, tender abd TECHNIQUE: 2 views of the abdomen were acquired. COMPARISON: None. FINDINGS: Surgical changes and devices: None. Bowel: No pneumoperitoneum. The bowel gas pattern is normal. Soft tissues: No masses; visualized solid organ contours appear normal in size. No suspicious abdominal calcifications. Bones: No suspicious bony abnormalities. IMPRESSION: Non-obstructive bowel gas pattern. Dictated by: Elizabeth Fields M.D. on 06/07/2023 at 14:37 Approved by: Elizabeth Fields M.D. on 06/07/2023 at 14:38 ECG Data Attestation: I personally reviewed and interpreted this ECG as follows: Prior ECG tracings: available for review Interpretation: AFib rate 89 QRS of [address]TC [address] No acute ST elevation depression noted. Patient has prior from 02/03/2021 was sinus rhythm at that time. MDM Narrative Medical decision making narrative: 88-year-old male with reported syncopal episode patient has been back and forth bathroom several times try to have a bowel movement he has been constipated for proximally week to 8 days. He has a mild headache afterwards mild abrasion he is on anticoagulant. reports short loss of consciousness he states he was off balance but did feel lightheaded priors this. He has recently been on antibiotic for UTI in his on his 3rd round and is currently taking ciprofloxacin. Patient is quite hypotensive in the field seems to be responsive to fluids has improved to the 100 systolic range was reported to be 50-70 systolic in the field improved 80s with the initial L. patient notes he has been hypotensive recently had his metoprolol stopped in the last 2-3 days. He has been checking his blood pressure had been 103 systolic on average last week. He also completed a course of Lasix. Labs CBC is negative INR is 1.3 Lactate is 11. Procalcitonin is normal at 0.07. Repeat lactate is improved but still elevated at 4. CMP shows sodium 136 potassium of 4.1 CO2 of 17 with a BUN of 27 and a creatinine of 1.4 was 1.17 in January 2021. Troponin negative troponin BNP is elevated at 262 was 300 and January of 2021 COVID/influenza/RSV is negative. Patient's heart rates slightly elevated does appear to be in AFib rate between 90s to low 100 patient's metoprolol being stopped recently as like he can contributing. Head CT is negative, head CT C-spine is negative, abdominal x-ray shows no acute change. CT chest abdomen pelvis was added secondary to elevated lactate and concern for potential obstruction. Patient given 2 L total, we held off on 30 cc/kilos bolus although he was tachycardic in the 100 range. Sepsis was potential but concern for CHF. Patient was given 1/3 L but more cautiously. As patient has recent ECHO on 05/31/23 with EF of 40%. Discussed with Dr. Jackson, accepted. Potential for sepsis. Patient has been fluid resuscitated, does give her CO2 of Rocephin. She looked does not see a urine culture pending further office but was prescribed ciprofloxacin this can have some sutures changes we will hold this antibiotic. Discussed patient has had some AFib RVR likely also related to decrease her metoprolol. She will see patient tonight and write orders. Discharge Plan Departure Patient Disposition: Admitted As Inpatient Clinical Impression: Atrial fibrillation with rapid ventricular response, Acidosis, lactic, UTI (urinary tract infection), Syncope, Hypotension Admit Date/Time: 06/07/23 17:23 Admit Provider: Alaina Jackson
[2023-06-07 14:32] LABS: Lactate (Lactic Acid) 11.4 mmol/L (0.7-2.1); NT-proBNP (BNP-Adult 18+) 2620 pg/mL (<450)
[2023-06-07 14:34] LABS: Troponin I < 0.012 ng/mL (0.01-0.034)
[2023-06-07 14:34] LABS: Influenza A - CEPHEID Flu A NEGATIVE (NEGATIVE); Influenza B - CEPHEID Flu B NEGATIVE (NEGATIVE); Respiratory Syncytial Virus Negative (Negative)
[2023-06-07] MEDS: LIDOCAINE 2% (GLYDO) 6 ML GEL TOP (14:37)
[2023-06-07 14:39] LABS: Procalcitonin 0.07 ng/mL (<0.5)
[2023-06-07 14:43] LABS: COVID-19 CEPHEID 4-PLEX PCR Negative (Negative)
--- NOTE | 2023-06-07 14:47 | DI.CT.S_ITS ---
PROCEDURE: CT CHEST ABD PEL W CON INDICATIONS: syncope, last BM 8 days ago, lactate 11 TECHNIQUE: After the administration of intravenous contrast, 5 mm thick sections acquired from the lung apices to the symphysis. 2.5 mm thick coronal and sagittal reformats were acquired. Additional 7 mm thick coronal maximum intensity projection (MIP) reformats acquired through the lungs. Optional 10-minute delayed imaging may be performed from the kidneys to the bladder. For radiation dose reduction, the following was used: automated exposure control, adjustment of mA and/or kV according to patient size. COMPARISON: None. FINDINGS: Image quality: Excellent. CHEST: Lungs: No pulmonary contusions or lacerations. No acute airspace opacities. No pneumothorax or hemothorax. Central and peripheral airways appear patent and normal in caliber. Mediastinum: No mediastinal hematomas. Heart size is normal. Calcification of the coronary vasculature is present. No pericardial effusion. Thoracic aorta and pulmonary arteries demonstrate normal size and enhancement. No mediastinal or hilar adenopathy. Esophagus is normal in caliber. No hiatal hernia. Chest wall: No rib fractures. No subcutaneous emphysema. No axillary or supraclavicular adenopathy. Thyroid gland is within normal limits. ABDOMEN: Solid organs: Liver is normal in size and enhancement, without lacerations. Gallbladder is within normal limits. Biliary system is non-dilated. Pancreas enhances normally, without transection. Spleen is normal in size and enhancement, without lacerations. No adrenal hematomas. Both kidneys enhance normally, without hydronephrosis or lacerations. Peritoneum and bowel: No free fluid or air. Unenhanced bowel loops demonstrate normal wall thickness . There is fecal impaction within the rectum. Moderate diffuse stool throughout the remainder of the colon. Appendix is not seen. No evidence of appendicitis. Nodes and vessels: No retroperitoneal or mesenteric adenopathy. Aorta and inferior vena cava are normal in size and enhancement. Miscellaneous: No ventral hernias. PELVIS: Genitourinary: Bladder wall thickness is normal. Miscellaneous: No inguinal hernias or adenopathy. Bones: Pelvic ring and hip joints appear intact. No vertebral compression fractures. Grade 1 anterolisthesis of L5 on S1. Bilateral L5-S1 pars interarticularis defects. IMPRESSION: 1. No acute process. 2. Coronary artery disease. 3. Appendix not seen. No evidence of appendicitis. 4. 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 Dictated by: Elizabeth Fields M.D. on 06/07/2023 at 15:14 Approved by: Elizabeth Fields M.D. on 06/07/2023 at 15:17
[2023-06-07 14:54] LABS: Alanine Aminotransferase 29 IU/L (<50)
--- NOTE | 2023-06-07 14:55 | PC.NURSE ---
Dr Morris at bedside. Advised to hold off on hall cath and bladder scan pt. Verbal order for 3rd liter of fluids from Dr Morris. Pt HR 102 and bp 106/59
[2023-06-07] MEDS: cefTRIAXone 2,000 MG in SODIUM CHLORIDE 0.9% 100 ML 200 MG IV (15:04)
[2023-06-07 15:28] LABS: Reflexed Lactate in 2 Hours Y
[2023-06-07 15:44] LABS: Appearance Urine UA CLEAR; Bilirubin Urine UA NEGATIVE (NEGATIVE); Color Urine UA YELLOW; Glucose Urine UA NEGATIVE (Negative); Ketones Urine UA TRACE (NEGATIVE); Leukocyte Esterase Urine UA TRACE (NEGATIVE); Nitrite Urine UA NEGATIVE (Negative); Occult Blood Urine UA TRACE-INTACT (Negative); Protein Urine UA NEGATIVE (Negative); Urobilinogen Urine UA 0.2 E.U./dL (0.2); pH Urine UA 5.5 (4.5-8.0)
--- NOTE | 2023-06-07 15:47 | PC.NURSE ---
1515 Pt stood at the bedside to use urinal and HR jumped to 130s. Pt SOB when he stood up and stated that he felt a little bit dizzy. Got pt back to bed with help of TALENT MANAGER and temp sensing hall catheter place. Pt tolerated well and HR is now 100 while lying in bed.
[2023-06-07 15:51] LABS: Bacteria Urine None Seen; Culture Indicated Urine Specimen Cultured; Hyaline Casts Urine 1-5/LPF; RBC Urine 1-5/HPF (0-5/HPF); Squamous Epithelial Cell Urine 1-5 /HPF (0-5/HPF); WBC Urine 1-5/HPF (0-5/HPF)
[2023-06-07 16:16] LABS: Lactate 2HR (Lactic Acid Rflx) 4.4 mmol/L (0.7-2.1)
--- NOTE | 2023-06-07 18:16 | P.HP_ITS ---
History of Present Illness History of Present Illness Date Patient Seen: 06/07/23 Time Patient Seen: 18:17 Date of Onset of Symptoms: 06/07/23 Chief complaint: Multi GLF, Weakness, +Orthostatics, UTI Narrative: This is a very pleasant 88-year-old male who has a new patient to me but is a long-term patient of Dr. Brownlee's. Patient presented to the emergency department after syncopal episodes x2 today. He states his only problem was constipation today in he was walking around hoping to procure a bowel movement and he had a syncopal episode. There was no presyncope. He did fall or trip. He then was brought to the emergency department for evaluation. He would extensive workup in the ER which included a CT scan of his head and his neck because he had abrasion on his head. This was negative for any abnormalities. He then had a CT scan of his chest abdomen and pelvis due to evidence sepsis and this was negative for etiology as well. Patient with a history of atrial fibrillation and recently saw Dr. Brownlee on June 04 in the clinic. Was having hypotension and therefore an echo was ordered and his metoprolol was stopped. Knees continue to have the same symptoms. I believe he was seen on June 01 and had had an echo on May 31 which showed a stable EF of 40- 45% and AFib. This was unchanged from echo in . He was also put on Cipro 500 mg twice daily I believe on June 04 when he called stating he still had urinary tract infections. He was found to have hypotension and AFib with RVR with low-normal blood pressure. He was given 3 L of fluid in his lactic acid went from 11 down to 4. His CK and troponin were normal remainder of his labs were normal although he had evidence of acute kidney disease or acute kidney injury which was new from his usual normal GFR. He was admitted to the hospital for further evaluation for syncope and sepsis. He was given 2 g of Rocephin in the ER. Urine culture and blood cultures are pending. Having urine symptoms and was started on Cipro on June 04 No fever or chills Has nasal congestion No cough No chest pain No lower extremity edema No presyncope previously Does feel tired and gets short of breath with exertion but is able to exercise on his exercise bike No blood in stool. He has had several weeks of constipation. Past medical history: 1. AFib with RVR 2. Chronic anticoagulation due to AFib with apixaban 5 mg twice daily 3. Type 2 diabetes controlled with metformin 4. Chronic systolic heart failure 5. Hyperlipidemia 6. Previous history of hypertension Allergies no known drug allergies Past surgical history: 03-10 he had a Dupuytren's contracture fasciotomy of his right 5th finger Social history: Patient lives with his in [facility]. He is retired and previously was in education as well worked for the [employer] Family history Father at 71. He would COPD but no known coronary artery disease Mom unknown medical problems Sister's throat cancer. She was a smoker Brother with Beatrice Gehrig's disease [facility] Medical History Atrial fibrillation Diabetes Asthma Surgical History Previous back surgery Family History Father No problems noted. Mother No problems noted. Social History Smoking Status: Never smoker Meds Home Medications and Allergies Home Medications Medication Instructions Recorded Confirmed Type atorvastatin 20 mg tablet 10 mg PO DAILY 10/12/17 01/18/18 History betamethasone, augmented 0.05 % 1 applictn topical DAILY 10/12/17 01/18/18 History topical cream cromolyn 5.2 mg/spray (4 %) nasal 2 spray intranasal TID 10/12/17 01/18/18 History spray cyclosporine 0.05 % eye drops in a EYE-BOTH 10/12/17 01/18/18 History dropperette (Restasis) fexofenadine 180 mg tablet 180 mg PO DAILY 10/12/17 01/18/18 History lisinopril 10 mg tablet 10 mg PO DAILY 10/12/17 01/18/18 History niacin 500 mg capsule,extended 500 mg PO BEDTIME 10/12/17 01/18/18 History release omega-3 fatty acids 1,000 mg 1,000 mg PO DAILY 10/12/17 01/18/18 History capsule (Fish Oil Concentrate) tramadol 50 mg tablet 50 mg PO QID 10/12/17 01/18/18 History gabapentin 300 mg capsule 300 mg PO DAILY 06/07/23 06/07/23 History Allergies Allergy/AdvReac Type Severity Reaction Status Date / Time No Known Drug Allergies Allergy Verified 06/07/23 13:40 Review of Systems Review of Systems Narrative: Negative other than HPI Exam Vital Signs (past 8 hours): - 06/07/23 13:29 06/07/23 13:32 06/07/23 13:33 Temperature 98.5 F Pulse Rate 104 H 93 H Respiratory Rate 18 Blood Pressure 88/40 L 88/51 L Pulse Oximetry 98 98 Oxygen Delivery Method Room Air 06/07/23 13:33 06/07/23 13:35 06/07/23 13:36 Temperature Pulse Rate 93 H 104 H 103 H Respiratory Rate 24 22 Blood Pressure Pulse Oximetry 98 99 98 Oxygen Delivery Method Room Air 06/07/23 13:36 06/07/23 13:40 06/07/23 13:40 Temperature Pulse Rate 105 H Respiratory Rate 26 H Blood Pressure 94/54 L 86/49 L Pulse Oximetry 97 Oxygen Delivery Method 06/07/23 13:45 06/07/23 13:50 06/07/23 13:55 Temperature Pulse Rate 99 H Respiratory Rate 26 H Blood Pressure 96/59 L 95/51 L Pulse Oximetry 99 Oxygen Delivery Method 06/07/23 13:55 06/07/23 14:00 06/07/23 14:00 Temperature Pulse Rate 104 H 96 H Respiratory Rate 19 26 H Blood Pressure 97/50 L Pulse Oximetry 99 97 Oxygen Delivery Method 06/07/23 14:04 06/07/23 14:05 06/07/23 14:05 Temperature Pulse Rate 98 H 94 H Respiratory Rate 21 27 H Blood Pressure 100/55 L Pulse Oximetry 99 98 Oxygen Delivery Method 06/07/23 14:29 06/07/23 14:29 06/07/23 14:30 Temperature Pulse Rate 98 H Respiratory Rate 22 Blood Pressure 94/56 L 108/51 L Pulse Oximetry 95 Oxygen Delivery Method 06/07/23 14:30 06/07/23 14:35 06/07/23 14:35 Temperature Pulse Rate 106 H 111 H Respiratory Rate 23 Blood Pressure 102/58 L Pulse Oximetry 96 95 Oxygen Delivery Method Room Air 06/07/23 14:40 06/07/23 14:40 06/07/23 14:45 Temperature Pulse Rate 111 H Respiratory Rate 23 Blood Pressure 106/60 98/54 L Pulse Oximetry 96 Oxygen Delivery Method 06/07/23 14:45 06/07/23 14:50 06/07/23 14:50 Temperature Pulse Rate 111 H 106 H Respiratory Rate 25 H 19 Blood Pressure 106/59 L Pulse Oximetry 95 95 Oxygen Delivery Method 06/07/23 14:59 06/07/23 15:00 06/07/23 15:05 Temperature 97.6 F Pulse Rate 85 97 H 124 H Respiratory Rate 23 22 Blood Pressure Pulse Oximetry 91 96 94 Oxygen Delivery Method 06/07/23 15:10 06/07/23 15:15 06/07/23 15:20 Temperature Pulse Rate 119 H 135 H 116 H Respiratory Rate 23 35 H 37 H Blood Pressure Pulse Oximetry 94 94 Oxygen Delivery Method 06/07/23 15:25 06/07/23 15:30 06/07/23 15:35 Temperature Pulse Rate 120 H 111 H 104 H Respiratory Rate 24 24 23 Blood Pressure Pulse Oximetry 97 96 99 Oxygen Delivery Method 06/07/23 15:40 06/07/23 15:44 06/07/23 15:44 Temperature Pulse Rate 108 H 112 H Respiratory Rate 26 H 24 Blood Pressure 104/58 L Pulse Oximetry 98 97 Oxygen Delivery Method Room Air 06/07/23 15:45 06/07/23 15:45 06/07/23 15:50 Temperature Pulse Rate 101 H Respiratory Rate 20 Blood Pressure 96/51 L 105/55 L Pulse Oximetry 97 Oxygen Delivery Method 06/07/23 15:50 06/07/23 15:55 06/07/23 15:55 Temperature Pulse Rate 111 H 110 H Respiratory Rate 26 H 26 H Blood Pressure 103/53 L Pulse Oximetry 98 97 Oxygen Delivery Method 06/07/23 16:00 06/07/23 16:00 06/07/23 16:04 Temperature Pulse Rate 103 H 106 H Respiratory Rate 25 H Blood Pressure 97/51 L Pulse Oximetry 96 96 Oxygen Delivery Method 06/07/23 16:05 06/07/23 16:05 06/07/23 16:10 Temperature Pulse Rate 100 H Respiratory Rate Blood Pressure 99/58 L 107/67 Pulse Oximetry 97 Oxygen Delivery Method 06/07/23 16:10 06/07/23 16:15 06/07/23 16:15 Temperature Pulse Rate 107 H 107 H Respiratory Rate 23 20 Blood Pressure 105/72 Pulse Oximetry 97 96 Oxygen Delivery Method 06/07/23 16:20 06/07/23 16:20 06/07/23 16:25 Temperature Pulse Rate 106 H 109 H Respiratory Rate 20 29 H Blood Pressure 116/58 L Pulse Oximetry 95 96 Oxygen Delivery Method 06/07/23 16:27 06/07/23 16:27 06/07/23 16:30 Temperature Pulse Rate 108 H Respiratory Rate 28 H Blood Pressure 110/53 L 109/56 L Pulse Oximetry 99 Oxygen Delivery Method 06/07/23 16:30 06/07/23 16:40 06/07/23 16:40 Temperature Pulse Rate 117 H 118 H Respiratory Rate 25 H 26 H Blood Pressure 109/53 L Pulse Oximetry 98 95 Oxygen Delivery Method Room Air 06/07/23 16:45 06/07/23 16:46 06/07/23 16:46 Temperature Pulse Rate 113 H 109 H Respiratory Rate 23 17 Blood Pressure 116/61 Pulse Oximetry 99 99 Oxygen Delivery Method 06/07/23 16:50 06/07/23 16:50 06/07/23 16:55 Temperature Pulse Rate 120 H Respiratory Rate 25 H Blood Pressure 98/62 99/58 L Pulse Oximetry 99 Oxygen Delivery Method 06/07/23 16:55 06/07/23 17:00 06/07/23 17:00 Temperature Pulse Rate 95 H 113 H Respiratory Rate 20 24 Blood Pressure 104/63 Pulse Oximetry 99 97 Oxygen Delivery Method 06/07/23 17:05 06/07/23 17:05 06/07/23 17:10 Temperature Pulse Rate 118 H Respiratory Rate 26 H Blood Pressure 102/60 104/68 Pulse Oximetry 98 Oxygen Delivery Method 06/07/23 17:10 06/07/23 17:15 06/07/23 17:15 Temperature Pulse Rate 112 H 117 H Respiratory Rate 27 H 25 H Blood Pressure 109/69 Pulse Oximetry 98 98 Oxygen Delivery Method 06/07/23 17:20 06/07/23 17:20 06/07/23 17:25 Temperature Pulse Rate 120 H Respiratory Rate 25 H Blood Pressure 118/65 106/62 Pulse Oximetry 99 Oxygen Delivery Method 06/07/23 17:25 06/07/23 17:30 06/07/23 17:30 Temperature Pulse Rate 112 H 115 H Respiratory Rate 28 H 24 Blood Pressure 111/52 L Pulse Oximetry 98 96 Oxygen Delivery Method Room Air 06/07/23 17:35 06/07/23 17:35 06/07/23 17:40 Temperature Pulse Rate 109 H Respiratory Rate 24 Blood Pressure 104/54 L 99/55 L Pulse Oximetry 97 Oxygen Delivery Method 06/07/23 17:40 06/07/23 17:45 06/07/23 17:45 Temperature Pulse Rate 118 H 107 H Respiratory Rate 25 H 27 H Blood Pressure 103/64 Pulse Oximetry 99 98 Oxygen Delivery Method 06/07/23 18:10 Temperature 97.5 F L Pulse Rate 110 H Respiratory Rate 22 Blood Pressure 117/65 Pulse Oximetry 99 Oxygen Delivery Method Oxygen Delivery Method Room Air Narrative Exam Narrative: Afebrile vital signs are stable Heart rate is very variable. Even with movement in the bed will go up to 168 but patient was asymptomatic and maintain blood pressure blood pressure as low in the 90s on admit now 117/65 O2 sat 99% Patient is alert and oriented x3 and excellent historian. is present. She is excellent historian as well. Patient looks much younger than stated age HEENT is unremarkable other than a small abrasion on the central aspect of his forehead proximally size of a nickel Neck: Supple without adenopathy or thyromegaly or jugular venous distention or bruits Chest: Clear to auscultation with slightly decreased breath sounds bibasilar but no wheezes or rhonchi or crackles Cor: Irregularly irregular rhythm at a rate in the low 100s Abdomen: Positive bowel sounds, soft. Patient does have tenderness in his right anterior lateral ribcage. There is also a very small abrasion in the right upper cor. There is no obvious hepatosplenic delay but abdomen is obese. There is no guarding or rebound. The abdomen is soft Extremities: Show trace nonpitting edema bilaterally. Pulses 2+ bilateral Neurologic exam nonfocal Skin unremarkable other than above. Objective Labs 06/07/23 13:25 06/07/23 13:25 Labs: Laboratory Results - last 24 hr 06/07/23 06/07/23 06/07/23 13:25 13:40 15:42 WBC 7.7 RBC 3.74 L Hgb 11.8 L Hct 36.1 L MCV 96.6 MCH 31.4 MCHC 32.6 RDW 14.2 Plt Count 301 Neut % (Auto) 55.4 Lymph % (Auto) 34.5 [place] % (Auto) 8.4 Eos % (Auto) 0.9 L Baso % (Auto) 0.8 Neut # (Auto) 4300 Lymph # (Auto) 2600 [place] # (Auto) 600 Eos # (Auto) 100 Baso # (Auto) 100 PT 15.4 H INR 1.3 APTT 26 Sodium 136 L Potassium 4.1 Chloride 99 Carbon Dioxide 17 L BUN 27 H Creatinine 1.40 H Estimated GFR 49 L BUN/Creatinine Ratio 19.3 Glucose 184 H Lactate 11.4 H* 4.4 H* Calcium 9.0 Total Bilirubin 1.0 AST 25 ALT 29 Alkaline Phosphatase 80 Total Creatine Kinase < 20 L Troponin I < 0.012 NT-Pro-B Natriuret Pep 2620 H Total Protein 7.0 Albumin 4.0 Globulin 3.0 Albumin/Globulin Ratio 1.3 Lipase 64 Procalcitonin 0.07 Urine Color Yellow Urine Appearance Clear Urine pH 5.5 Ur Specific [place] 1.020 Urine Protein Negative Urine Glucose (UA) Negative Urine Ketones Trace H Urine Occult Blood Trace-intact Urine Nitrate Negative Urine Bilirubin Negative Urine Urobilinogen 0.2 Ur Leukocyte Esterase Trace H Urine RBC 1-5/hpf Urine WBC 1-5/hpf Ur Squamous Epith Cells 1-5 /hpf Urine Bacteria None seen Hyaline Casts 1-5/lpf Ur Culture Indicated? Specimen cultured SARS-CoV-2 (PCR) Negative Influenza A (RT-PCR) Flu a negative Influenza B (RT-PCR) Flu b negative RSV (PCR) Negative Assessment & Plan Assessment & Plan narrative: [age] year old male admitted to the hospital for syncopal episodes x2 with suspected sirs. Patient meets criteria based on tachycardia, hypotension, elevated lactate. Urine suspicious for infection. 2 g of IV Rocephin were given. Repeat lactate pending. Will admit to the hospital for further treatment with antibiotics and evaluation. Reviewed imaging. Patient received agudelo CT. Urine culture and blood cultures pending Assessment 2. AFib with RVR suspect it related to ongoing illness and cessation of metoprolol Plan: Will restart metoprolol 25 mg twice daily. Will continue with tele. Continue with outpatient apixaban for anticoagulation Assessment 3. Systolic chronic heart failure with no evidence of acute exacerbation at this time. Reviewed most recent echo on 05/31/2023. It was stable from 2021. At this point will restart the metoprolol. Will hold the lisinopril due to hypotension. Will hold the Lasix for now but recheck BNP in the morning. Assessment 4. Type 2 diabetes on outpatient metformin. Will hold this for now. Plan: Sliding scale insulin ordered. Will check CBGS q.a.c. and q.h.s. and place him on a diabetic diet Assessment 5. Hyperlipidemia Plan: Continue with atorvastatin Assessment 6. History back pain status post L5 S1 laminectomy in 2004. Patient is weaning off gabapentin as he does not need it and rarely takes tramadol Plan: Will monitor. Will continue outpatient medications Assessment 7. Acute kidney disease suspect related to ongoing illness. 3 L IV fluid was given. Will hold metformin. Will hold lisinopril. Plan will reassess in a.m.. Assessment 8. Hypotension which is a fairly new problem. Better now with holding the metoprolol but now with RVR I think that is affecting his overall function. Will restart the metoprolol for the AFib with RVR and will hold the lisinopril. Reviewed his echo. We will monitor fluid status. Maybe he needs just a lower dose of lisinopril lower dose of metoprolol. Likely will need Cardiology outpatient workup. Code status is full code at this time. We discussed this at length and he does not want any heroics but his was a bit indecisive with this and they are going to wait and talk to Dr. Brownlee and will fill out thepolst formed tomorrow. 76 minutes was spent with patient in discussing with ER physician, nursing, meeting with patient, reviewing his chart in the clinic as well as a separate chart in the hospital and reviewing diagnostics and examining patient, formulating a plan and documentation.
--- NOTE | 2023-06-07 18:16 | PC.NURSE ---
Admit: pt arrived from ED on stretcher to RM 226 at approximately 1750. Pt able to slide self to bed with minimal assist, SOB upon laying supine. This was relieved by elevating HOB. O2 98% on RA, BP 117/65, HR 108 Afib, RR 25. A&Ox4, Latoya at bedside. Pt oriented to room and call light. Care ongoing. Will continue to monitor.
[2023-06-07 18:46] LABS: Lactate (Lactic Acid) 3.3 mmol/L (0.7-2.1)
[2023-06-07] MEDS: METOPROLOL ER 25 MG TABLET PO (18:53)
[2023-06-07 19:49] LABS: MRSA (Nasal) PCR Not Detected (Not Detect)
[2023-06-07 20:10] LABS: Reflexed Lactate in 2 Hours Y
[2023-06-07] MEDS: APIXABAN 5 MG TABLET PO (20:31)
[2023-06-07] MEDS: DOCUSATE 100 MG CAPSULE PO (20:31)
[2023-06-07] MEDS: SENNOSIDES 8.6 MG TABLET 17.2 MG PO (20:31)
[2023-06-07] MEDS: ATORVASTATIN 20 MG TABLET PO (20:31)
[2023-06-07] MEDS: SODIUM CHLORIDE 0.9% FLUSH 10 ML IV (20:32)
[2023-06-07 21:14] LABS: Lactate 2HR (Lactic Acid Rflx) 2.3 mmol/L (0.7-2.1)
[2023-06-08 04:34] LABS: Add Manual Diff / Slide Review NO; Basophils Absolute Auto 100 /uL (0-100); Basophils Percent Auto 0.7 % (0-2); Eosinophils Absolute Auto 0 /uL (0-450); Eosinophils Percent Auto 0.4 % (2-4); Hematocrit 32.3 % (41-53); Hemoglobin 10.9 g/dL (13.5-17.5); Lymphocytes Absolute Auto 1700 /uL (1100-4500); Lymphocytes Percent Auto 21.5 % (25-40); Mean Corpuscular HGB Conc 33.6 % (30-36); Mean Corpuscular Hemoglobin 31.9 PG (26-34); Monocytes Absolute Auto 800 /uL (0-900); Monocytes Percent Auto 10.3 % (3-14); Neutrophils Absolute Auto 5400 /uL (1500-7000); Neutrophils Percent Auto 67.1 % (50-75); Platelet Count 233 X10^3/uL (150-400); Red Cell Distribution Width 13.9 % (11.6-14.8)
[2023-06-08 04:46] LABS: Alanine Aminotransferase 15 IU/L (<50); Albumin 3.2 g/dL (3.5-5.0); Albumin Globulin Ratio 1.1 (1.0-2.8); Alkaline Phosphatase 69 U/L (38-126); Aspartate Aminotransferase 23 IU/L (17-59); BUN Creatinine Ratio 27.1 (6-22); Bilirubin Total 0.8 mg/dL (0.2-1.3); Blood Urea Nitrogen 23 mg/dL (9-20); Calcium 8.4 mg/dL (8.4-10.2); Carbon Dioxide 27 mmol/L (22-32); Chloride 104 mmol/L (98-107); Estimated Glomerular Filt Rate > 60 mL/min (>60); Globulin 2.9 g/dL (1.7-4.1); Glucose 102 mg/dL (80-110); HEMOLYSIS < 15 (0-50); Sodium 135 mmol/L (137-145); Total Protein 6.1 g/dL (6.3-8.2)
[2023-06-08 04:53] LABS: NT-proBNP (BNP-Adult 18+) 2760 pg/mL (<450)
[2023-06-08 05:23] VITALS: TEMP 36.5
--- NOTE | 2023-06-08 06:25 | PC.NURSE ---
Tunnel Form Placing Supervisor Note-Patient was awake most of the night watching TV, no distress, denies chest pain, palpitations, or shortness of breath at rest. Afib rate 80s-120, BP stable-see vital trends. SpO2 98% RA. 850ml clear yellow UOP in [place].
--- NOTE | 2023-06-08 08:05 | CM.DANOTE ---
Addendum entered and electronically signed by MALVIN Mathis 06/08/23 11:46: Per pt's request, provided forms for DPO[employer]-Healthcare. Original Note: Initial DCP Assessment Note Reviewed EMR and met with floor RN to discuss pt's medical status and anticipated d/c needs. Pt found to be sleeping at the time of this assessment, he was reportedly awake most of the night after being placed in a OBS bed for further tx and evaluation. Pt is , lives with his independently here in [place]. Payor: [employer] PCP: Dr. Brownlee Pt is a 88 year-old with a hs of Afib, hypertension, dyslipidemia, diabetes type-2, and hypotensive for the last few weeks presented at the ED on 06/07/23 after having a syncopal episode, fell, and remained dizzy/unbalanced. He reported having had no BM in the last 8-days, and had been trying to get himself to the bathroom when he fell. Pt was started on IV fluids and ABO's due to suspected sepsis from a UTI that he has been on oral ABO's for OP. Pt was then placed in a OBS bed for further evaluation and tx. LOS expected 1-midnight. DCP will follow and assist with any evolving d/c needs. Discharge Planning/Care Management CM Discharge Assessment Start: 06/08/23 08:02 Freq: Status: Active Protocol: Document 06/08/23 08:02 DPL (Rec: 06/08/23 08:05 DPL [id number]) Discharge Planning Assessment Assigned Microfilm Technician MALVIN Carbone Advance Directives? No History Provided By Medical Record Expected Length of Stay 1 Has Patient been admitted in last 30 No days? Prior Living Arrangements House Household Members spouse Comment [place] Independent with ADL's Yes Is patient alert and oriented? Yes Caregiver for Another No Comment No anticipated d/c needs identified at this time. Barriers to Discharge No Discharge Plan Home Referrals Initiated None needed Whiteboard Updated in Patient Room with Yes name and ext. # of Microfilm Technician Review Status In Process Please Provide Date Initial DC 06/08/23 Assessment Was Performed
[2023-06-08 08:17] VITALS: BP 126/79; PULSE 135
[2023-06-08] MEDS: METOPROLOL ER 25 MG TABLET PO (08:17)
[2023-06-08] MEDS: DOCUSATE 100 MG CAPSULE PO ×2 (08:17→20:51)
[2023-06-08] MEDS: APIXABAN 5 MG TABLET PO ×2 (08:17→20:51)
[2023-06-08] MEDS: cefTRIAXone 2,000 MG in SODIUM CHLORIDE 0.9% 100 ML 200 MG IV (08:17)
[2023-06-08] MEDS: GABAPENTIN 300 MG CAPSULE PO (08:17)
[2023-06-08] MEDS: SODIUM CHLORIDE 0.9% FLUSH 10 ML IV ×2 (08:32→21:30)
--- NOTE | 2023-06-08 08:43 | P.PN_ITS ---
Subjective Subjective Date Patient Seen: 06/08/23 Time Patient Seen: 08:43 Interval history: Patient seen in follow-up of sepsis syndrome, atrial fibrillation with RVR, interval other issues. Patient overall feeling better this morning. Had a bowel movement. So feeling quite a bit better. Has been constipated were awhile. He has had no chest pain. No palpitations. Heart rate is improved but still slightly elevated. Otherwise no change or complaint. Exam Vital Signs (past 8 hours): - 06/08/23 05:23 06/08/23 08:17 Temperature 97.7 F Pulse Rate 135 H Blood Pressure 126/79 Oxygen Delivery Method Room Air Narrative Exam Narrative: Alert elderly male mildly fatigued no acute distress Lungs are clear heart is irregular rate but controlled rhythm. Abdomen is soft positive bowel sounds tender extremities without cyanosis clubbing edema Objective Labs 06/08/23 04:25 06/08/23 04:25 Labs: Laboratory Results - last 24 hr 06/07/23 06/07/23 06/07/23 13:25 13:40 15:42 WBC 7.7 RBC 3.74 L Hgb 11.8 L Hct 36.1 L MCV 96.6 MCH 31.4 MCHC 32.6 RDW 14.2 Plt Count 301 Neut % (Auto) 55.4 Lymph % (Auto) 34.5 [place] % (Auto) 8.4 Eos % (Auto) 0.9 L Baso % (Auto) 0.8 Neut # (Auto) 4300 Lymph # (Auto) 2600 [place] # (Auto) 600 Eos # (Auto) 100 Baso # (Auto) 100 PT 15.4 H INR 1.3 APTT 26 Sodium 136 L Potassium 4.1 Chloride 99 Carbon Dioxide 17 L BUN 27 H Creatinine 1.40 H Estimated GFR 49 L BUN/Creatinine Ratio 19.3 Glucose 184 H Lactate 11.4 H* 4.4 H* Calcium 9.0 Total Bilirubin 1.0 AST 25 ALT 29 Alkaline Phosphatase 80 Total Creatine Kinase < 20 L Troponin I < 0.012 NT-Pro-B Natriuret Pep 2620 H Total Protein 7.0 Albumin 4.0 Globulin 3.0 Albumin/Globulin Ratio 1.3 Lipase 64 Procalcitonin 0.07 Urine Color Yellow Urine Appearance Clear Urine pH 5.5 Ur Specific [place] 1.020 Urine Protein Negative Urine Glucose (UA) Negative Urine Ketones Trace H Urine Occult Blood Trace-intact Urine Nitrate Negative Urine Bilirubin Negative Urine Urobilinogen 0.2 Ur Leukocyte Esterase Trace H Urine RBC 1-5/hpf Urine WBC 1-5/hpf Ur Squamous Epith Cells 1-5 /hpf Urine Bacteria None seen Hyaline Casts 1-5/lpf Ur Culture Indicated? Specimen cultured Nasal Screen MRSA (PCR) SARS-CoV-2 (PCR) Negative Influenza A (RT-PCR) Flu a negative Influenza B (RT-PCR) Flu b negative RSV (PCR) Negative 06/07/23 06/07/23 06/07/23 18:23 18:34 20:53 WBC RBC Hgb Hct MCV MCH MCHC RDW Plt Count Neut % (Auto) Lymph % (Auto) [place] % (Auto) Eos % (Auto) Baso % (Auto) Neut # (Auto) Lymph # (Auto) [place] # (Auto) Eos # (Auto) Baso # (Auto) PT INR APTT Sodium Potassium Chloride Carbon Dioxide BUN Creatinine Estimated GFR BUN/Creatinine Ratio Glucose Lactate 3.3 H 2.3 H Calcium Total Bilirubin AST ALT Alkaline Phosphatase Total Creatine Kinase Troponin I NT-Pro-B Natriuret Pep Total Protein Albumin Globulin Albumin/Globulin Ratio Lipase Procalcitonin Urine Color Urine Appearance Urine pH Ur Specific [place] Urine Protein Urine Glucose (UA) Urine Ketones Urine Occult Blood Urine Nitrate Urine Bilirubin Urine Urobilinogen Ur Leukocyte Esterase Urine RBC Urine WBC Ur Squamous Epith Cells Urine Bacteria Hyaline Casts Ur Culture Indicated? Nasal Screen MRSA (PCR) Not detected SARS-CoV-2 (PCR) Influenza A (RT-PCR) Influenza B (RT-PCR) RSV (PCR) 06/08/23 04:25 WBC 8.0 RBC 3.40 L Hgb 10.9 L Hct 32.3 L MCV 95.0 MCH 31.9 MCHC 33.6 RDW 13.9 Plt Count 233 Neut % (Auto) 67.1 Lymph % (Auto) 21.5 L [place] % (Auto) 10.3 Eos % (Auto) 0.4 L Baso % (Auto) 0.7 Neut # (Auto) 5400 Lymph # (Auto) 1700 [place] # (Auto) 800 Eos # (Auto) 0 Baso # (Auto) 100 PT INR APTT Sodium 135 L Potassium 5.0 Chloride 104 Carbon Dioxide 27 BUN 23 H Creatinine 0.85 Estimated GFR > 60 BUN/Creatinine Ratio 27.1 H Glucose 102 Lactate Calcium 8.4 Total Bilirubin 0.8 AST 23 ALT 15 Alkaline Phosphatase 69 Total Creatine Kinase Troponin I NT-Pro-B Natriuret Pep 2760 H Total Protein 6.1 L Albumin 3.2 L Globulin 2.9 Albumin/Globulin Ratio 1.1 Lipase Procalcitonin Urine Color Urine Appearance Urine pH Ur Specific [place] Urine Protein Urine Glucose (UA) Urine Ketones Urine Occult Blood Urine Nitrate Urine Bilirubin Urine Urobilinogen Ur Leukocyte Esterase Urine RBC Urine WBC Ur Squamous Epith Cells Urine Bacteria Hyaline Casts Ur Culture Indicated? Nasal Screen MRSA (PCR) SARS-CoV-2 (PCR) Influenza A (RT-PCR) Influenza B (RT-PCR) RSV (PCR) [facility] Medical History Atrial fibrillation Diabetes Asthma Surgical History Previous back surgery Family History Father No problems noted. Mother No problems noted. Social History household members: spouse Smoking Status: Never smoker Assessment & Plan Assessment & Plan narrative: Sepsis syndrome. Etiology is unclear on actual cause. CT scan was negative. Urine possible. Cultures are pending still. At this point lactic acids completely resolved. Will continue to follow and continue Rocephin until cultures are either negative or adjustment needs to be made. Hopefully we can go home tomorrow. Will see how things go. It is all unclear at this time. Will see what his heart rate does. I believe fluid status is okay and we will discontinue IV hydration Atrial fibrillation with RVR. Patient has had issues over time. We would discontinued his metoprolol and probably got increased heart rate which did not help us in his syncopal episode. And his short of breath. Am going to switch to digoxin and see if we can get heart rate control and blood pressure improvement. Will discontinue his metoprolol. His blood pressure at home has been significantly low and I think that is part of his dyspnea issue. Has not found anything other definitive findings. Patient understands questions answered will do IV load today and switchto 0.125 mg tomorrow. No other changes now. Cardiac otherwise seems to be stable. 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 I am going to discontinue his fluids today. I think we are doing okay. I do not think he needs any Lasix at this time. But I do not want to over compensate from his initial fluid load. Will hopefully be able to slowly increase his lisinopril once we got other issues dealt with including his hypo tension. May need to see liquid flavor compounder again. Acute renal failure. Resolved essentially with fluid hydration. Prerenal. No other issues at this time. Will make sure stable but going to discontinue fluids. Type 2 diabetes. Stable. Will continue to follow. On sliding scale. Will start back metformin probably tomorrow. Hypotension. Probably combination of possible sepsis, increased heart rate, and lisinopril. He overall seems to be otherwise doing well. Hydration is help. Will follow. Going to discontinue his hydration at this time will just have to see how it goes. Certainly improved at this time and will follow. Code status full. DVT prophylaxis on anticoagulation. 60 minutes spent with discussion with coverage, patient, nursing, review of chart, orders, dictation
[2023-06-08 09:54] VITALS: BP 126/79; PULSE 86
[2023-06-08] MEDS: DIGOXIN 500 MCG/2 ML AMPUL 250 MCG IV ×2 (09:54→15:22)
[2023-06-08 15:22] VITALS: BP 123/59; PULSE 81
[2023-06-08 20:20] VITALS: BP 129/63; PULSE 62; RESP 17; TEMP 36.6; O2SAT 98
[2023-06-08] MEDS: SENNOSIDES 8.6 MG TABLET 17.2 MG PO (20:51)
[2023-06-08] MEDS: ATORVASTATIN 20 MG TABLET PO (20:51)
[2023-06-08 20:58] VITALS: BP 132/72; PULSE 62
[2023-06-09 00:38] VITALS: BP 111/60; PULSE 81; RESP 17; TEMP 36.8; O2SAT 96
[2023-06-09 02:57] VITALS: BP 128/57; PULSE 61
[2023-06-09 04:41] VITALS: BP 119/60; PULSE 72; RESP 16; TEMP 36.5; O2SAT 96
[2023-06-09 04:41] LABS: Add Manual Diff / Slide Review NO; Basophils Absolute Auto 0 /uL (0-100); Basophils Percent Auto 0.6 % (0-2); Eosinophils Absolute Auto 100 /uL (0-450); Eosinophils Percent Auto 0.9 % (2-4); Hematocrit 32.4 % (41-53); Lymphocytes Absolute Auto 1300 /uL (1100-4500); Lymphocytes Percent Auto 18.2 % (25-40); Mean Corpuscular HGB Conc 34.1 % (30-36); Monocytes Absolute Auto 900 /uL (0-900); Monocytes Percent Auto 12.4 % (3-14); Neutrophils Absolute Auto 4700 /uL (1500-7000); Neutrophils Percent Auto 67.9 % (50-75); Platelet Count 233 X10^3/uL (150-400); Red Blood Cell Count 3.44 X10^6/uL (4.5-5.9); Red Cell Distribution Width 13.6 % (11.6-14.8)
[2023-06-09 04:52] LABS: Alanine Aminotransferase 15 IU/L (<50); Albumin 3.2 g/dL (3.5-5.0); Alkaline Phosphatase 72 U/L (38-126); Aspartate Aminotransferase 25 IU/L (17-59); BUN Creatinine Ratio 26.1 (6-22); Bilirubin Total 0.8 mg/dL (0.2-1.3); Blood Urea Nitrogen 18 mg/dL (9-20); Calcium 8.7 mg/dL (8.4-10.2); Carbon Dioxide 31 mmol/L (22-32); Chloride 104 mmol/L (98-107); Estimated Glomerular Filt Rate > 60 mL/min (>60); Globulin 3.1 g/dL (1.7-4.1); Glucose 107 mg/dL (80-110); HEMOLYSIS < 15 (0-50); Potassium 4.5 mmol/L (3.4-5.1); Sodium 136 mmol/L (137-145); Total Protein 6.3 g/dL (6.3-8.2)
[2023-06-09 05:38] LABS: Vitamin B12 172 pg/mL (239-931)
[2023-06-09] MEDS: cefTRIAXone 2,000 MG in SODIUM CHLORIDE 0.9% 100 ML 200 MG IV (06:31)
[2023-06-09 08:12] VITALS: BP 117/67; PULSE 66; RESP 19; TEMP 36.1; O2SAT 96
[2023-06-09] MEDS: GABAPENTIN 300 MG CAPSULE PO (08:19)
[2023-06-09] MEDS: DOCUSATE 100 MG CAPSULE PO (08:19)
[2023-06-09] MEDS: APIXABAN 5 MG TABLET PO (08:20)
[2023-06-09] MEDS: SODIUM CHLORIDE 0.9% FLUSH 10 ML IV (08:21)
[2023-06-09 08:28] VITALS: BP 178/78; PULSE 96
[2023-06-09] MEDS: DIGOXIN 500 MCG/2 ML AMPUL 250 MCG IV (08:28)
--- NOTE | 2023-06-09 10:47 | CM.DPC ---
DCP Cont. Reviewed EMR and team rounds for status updates. Plan is for pt to d/c home today with family assistance, his and dtr will transport him once the d/c order is completed. No further DCP needs identified at this time.
--- NOTE | 2023-06-09 11:05 | P.DS_ITS ---
History of Present Illness History of Present Illness Date Patient Seen: 06/09/23 Time Patient Seen: 11:05 Date of Onset of Symptoms: 06/07/23 Chief complaint: Multi GLF, Weakness, +Orthostatics, UTI Narrative: See history and physical dictated by Dr. Jackson Discharge Providers Provider Date of admission: 06/07/23 17:23 Discharge Date: 06/09/23 Primary care physician: Markel Brownlee MD Consults: 06/08/23 19:42 Consult to Dietitian, Adult Routine Comment: Reason For Exam: per patient's daughter eats only fruit and cheese. Discharge provider: Markel Brownlee MD Summary Hospital Course Discharge Diagnosis: Sepsis syndrome atrial fibrillation with AVR Chronic systolic left ventricular diastolic heart failure Acute renal failure Type 2 diabetes Falls x2 Hypotension Hospital Course: Sepsis syndrome. Patient was admitted and procalcitonin which was markedly elevated along with hypotension and renal failure acute readdress with fluid hydration and Rocephin. CT scan did not show any intrathoracic or abdominopelvic issue cultures all remain negative he had no other complaint at this point. Was feeling well. White count was stable no further fevers and with fluid hydration systemic issues resolved. Etiology is unclear but will be sent out with Ceftin 500 mg b.i.d. for 7 days and will follow-up with me this week. Atrial fibrillation with RVR. Patient was initially hypotensive and in RVR. He was initially placed on metoprolol. Which certainly resolve the issue. The issue has been that he has had hypotensive issues for some time and we have had difficulty with him being does to low blood pressure which probably is part of why he had his falls. Complicated with his sepsis syndrome. We discussed this. In the end we started digoxin IV for 24 hours prior which gave us good control blood pressure was improved and we will go out on digoxin once a day. And follow-up next week. 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 Whether or not this was worsened secondary to his failure his recent echo really has not changed and I suspect it was probably the infection that made it worse. He seems to be stable at this time. Alignment maybe related to his heart rate control which was not going well. Hopefully we will slowly be able to restart his lisinopril but I am going to hold off on it until he gets back. And we see how his blood pressure stable and see how he is feeling. Acute on chronic renal failure. Resolved essentially with fluid hydration was prerenal. No other issues will follow as outpatient. Type 2 diabetes stable throughout course. Hypotension. This is a combination I believe his sepsis in his medication for his atrial fibrillation. He responded to fluid and hydration has done well. Blood pressure is much better at this point will follow. Falls x2. Either was a combination of hypotension from sepsis or could have been vasovagal it was all around a bowel movement. But he has not had any issues since being in the hospital and I think a lot of it has to do with fluid resuscitation and medication changes will continue to follow. End of life care discussion. We had a long discussion about code no code what that means we also discussed living well. He understands leaning towards DNR but we will see he will discuss with and family and talked to us and I will make a decision and hopefully fill out his forms on Sunday 45 minutes spent with the patient nursing discharge dictation and orders Exam Vital Signs (past 8 hours): - 06/09/23 04:41 06/09/23 08:12 06/09/23 08:28 Temperature 97.7 F 97 F L Pulse Rate 72 66 96 H Respiratory Rate 16 19 Blood Pressure 119/60 117/67 178/78 H Pulse Oximetry 96 96 Oxygen Flow Rate 0 0 Oxygen Delivery Method Room Air Oxygen Flow Rate 0 Narrative Exam Narrative: Alert male much less fatigued no acute distress. Lung are clear heart irregular rhythm but controlled rate extremities without edema neurologic exam is nonfocal Objective Labs 06/09/23 04:10 06/09/23 04:10 Labs: Laboratory Results - last 24 hr 06/09/23 04:10 WBC 7.0 RBC 3.44 L Hgb 11.0 L Hct 32.4 L MCV 94.0 MCH 32.0 MCHC 34.1 RDW 13.6 Plt Count 233 Neut % (Auto) 67.9 Lymph % (Auto) 18.2 L [place] % (Auto) 12.4 Eos % (Auto) 0.9 L Baso % (Auto) 0.6 Neut # (Auto) 4700 Lymph # (Auto) 1300 [place] # (Auto) 900 Eos # (Auto) 100 Baso # (Auto) 0 Sodium 136 L Potassium 4.5 Chloride 104 Carbon Dioxide 31 BUN 18 Creatinine 0.69 Estimated GFR > 60 BUN/Creatinine Ratio 26.1 H Glucose 107 Calcium 8.7 Total Bilirubin 0.8 AST 25 ALT 15 Alkaline Phosphatase 72 Total Protein 6.3 Albumin 3.2 L Globulin 3.1 Albumin/Globulin Ratio 1.0 Vitamin B12 172 L PFSH Medical History Atrial fibrillation Diabetes Asthma Surgical History Previous back surgery Family History Father No problems noted. Mother No problems noted. Social History household members: spouse Smoking Status: Never smoker Discharge Assessment & Plan Assessment and Plan Assessment: Improved Plan of Treatment: Discharge home Discharge Plan Discharge Plan Patient Disposition: Home Discharge orders & Medications Prescriptions: New cefuroxime axetil 250 mg Tablet 500 mg PO BID Qty: 28 0RF digoxin 125 mcg (0.125 mg) Tablet 0.125 mg PO DAILY@1700 Qty: 30 1RF Continued gabapentin 300 mg capsule 300 mg PO DAILY metformin 500 mg tablet 500 mg PO BID Eliquis 5 mg tablet 5 mg PO BID atorvastatin 20 mg tablet 10 mg PO DAILY cromolyn 5.2 mg/spray (4 %) spray,non-aerosol 2 spray NASAL TID omega-3 fatty acids [Fish Oil Concentrate] 1,000 mg capsule 1,000 mg PO DAILY betamethasone, augmented 0.05 % cream 1 applictn TOP DAILY tramadol 50 mg tablet 50 mg PO QID niacin 500 mg capsule, extended release 500 mg PO BEDTIME cyclosporine [Restasis] 0.05 % dropperette See Rx Instructions .ROUTE .COMPLEX Rx Instructions: Use as directed Discontinued lisinopril 10 mg tablet 10 mg PO DAILY Follow up/Referrals: Markel Brownlee MD [Primary Care Provider] - 06/13/23 (Call for appointment on Sunday) Discharge Health Status Multidrug resistant organism: No MDRO Diet/Activity/Treatments Diet: Carb-consistent/Diabetic Activity: As tolerated Other treatments: I would like patient to use MiraLax 1 capful a day for constipation Skin/Wound/Dressing Care Report to your healthcare provider any signs of infection, such as:: chills, fever and increased pain Visit Report/Discharge Packet Stand Alone Forms: Patient Portal/API, Stroke Signs & Symptoms Discharge Data Primary Care Provider: Markel Brownlee
[2023-06-09 12:10] VITALS: BP 131/71; PULSE 65; RESP 20; TEMP 36.6; O2SAT 99
--- NOTE | 2023-06-09 14:14 | PC.NURSE ---
VSS. Afebrile. A&Ox4. Pt discharged today, extensive pt education was on the medication digoxin, side effects of digoxin, what to watch out for when taking digoxin and possible digoxin toxicity symptoms to monitor for and when to call 911 and go to the ED. Pt and spouse verbalized understanding. Discussed sepsis, hypotension, how to safely change positions. All questions answered at the time of discharge. IV removed and catheter tip intact, all tele monitors removed. All pt belongings went home with pt at the time of discharge including shoes, clothing, and glasses. Pt was wheeled out to the vehicle by KINGA.
== END 2023-06-09 13:54 | disposition home or self-care (01) | DRG 872 ==
LOC: ED 16:37 → AC 17:23 → ICU 17:30
PROVIDERS: Admitting Provider Family Medicine; Emergency Provider Emergency Medicine; Family Provider Family Medicine; PCP Family Medicine; Referring Provider Emergency Medicine; Visit Provider Family Medicine
DX: A41.9 Sepsis, unspecified organism (principal); N17.9 Acute kidney failure, unspecified; I50.22 Chronic systolic (congestive) heart failure; N39.0 Urinary tract infection, site not specified; I48.91 Unspecified atrial fibrillation; S00.81XA Abrasion of other part of head, initial encounter; E78.5 Hyperlipidemia, unspecified; M54.9 Dorsalgia, unspecified; E11.22 Type 2 diabetes mellitus with diabetic chronic kidney disease; N18.9 Chronic kidney disease, unspecified; W18.30XA Fall on same level, unspecified, initial encounter; Z79.84 Long term (current) use of oral hypoglycemic drugs; Z79.01 Long term (current) use of anticoagulants
CPT/HCPCS: 0241U; 36415; 51798; 70450; 71045; 71260; 72125; 74019; 74177; 80053; 81001; 81003; 82550; 82607; 82962; 83605; 83690; 83880; 84145; 84484; 85025; 85610; 85730; 87040; 87086; 87797; 93005; 93010; 96365; 99285; J0696; J1160; Q9967

== ENCOUNTER → 2024-09-19 14:43 | Outpatient (CLI) | payer MEDICARE, OTHER, SELFPAY ==
[2023-06-07 18:54] VITALS: BMI 31.1
--- NOTE | 2024-09-19 14:44 | DI.ECHO.S_ITS ---
[facility] : : [address] : : [place] : : [id number] : : Phone: [phone] Echocardiogram Report + + :Name: ANASTACIA VEGA Study Date: 09/19/2024 Height: 70 in : :[facility] ReadingLocation: Weight: 198 lb : : Gender: Male BSA: 2.1 m2 : :: 1935 Age: 89 yrs BP: 116/64 mmHg: :Reason For Study: ATRIAL FIBRILLATION : :Ordering Physician: STEPHANIE, : :JENNIFER Performed By: Robert Modi : :Referring: JENNIFER CERON : + + Interpretation Summary 1) Mildly increased left ventricular thickness (concentric) with normal size with normal systolic functoin (EF 55-60%). 2) Normal right ventricular size and function. 3) The left atrium is severely dilated. 4) No significant valvular abnormalities. 5) Compared to the Echo done 05/31/2023, LVEF has improved from 40-45% to 55-60% on this study. Procedure: A two-dimensional transthoracic echocardiogram with color flow and Doppler was performed. The study quality was technically adequate. Comparison is made with the echocardiogram of 05/31/2023. The patient was in atrial fibrillation with heart rates between 60-92 bpm during the exam. Left Ventricle: The left ventricle is normal in size. Left ventricular wall thickness is mildly increased. There is no ventricular septal defect visualized. The ejection fraction is estimated to be 55-60%. There are no focal wall motion abnormalities. Diastolic function could not be accurately assessed due to atrial fibrillation. Right Ventricle: The right ventricle is normal in size and function. Atria: The left atrium is severely dilated. The right atrium is borderline dilated. There is no Doppler evidence for an interatrial shunt. Mitral Valve: The mitral valve leaflets appear normal. There is no evidence of stenosis, fluttering, or prolapse. There is mild mitral regurgitation. Aortic Valve: The aortic valve is not well visualized. The aortic valve is mildly calcified. There is no aortic valve stenosis. There is trace aortic regurgitation. Tricuspid Valve: The tricuspid valve leaflets are thin and pliable. There is trace tricuspid regurgitation. Pulmonic Valve: The pulmonic valve is not well visualized. There is trace pulmonic regurgitation. Great Vessels: The aortic root is borderline dilated. The dimensions of the ascending aorta are normal. The pulmonary artery is not well visualized, but is probably normal size. The inferior vena cava was not visualized. Pericardium/ Pleura There is no pericardial effusion. MMode/2D Measurements & Calculations LVIDd: 4.4 cm LVOT diam: 2.5 cm LVIDs: 2.5 cm Ao root diam: 4.2 cm FS: 41.5 % asc Aorta Diam: 3.5 cm EPSS: 0.76 cm IVSd: 1.4 cm LVPWd: 1.4 cm LV ruiz. diameter/BSA (cm/m^2): 2.1 LV sys. diameter/BSA (cm/m^2): 1.2 LA A2 area: 35.8 cm2 RA long axis: 4.6 cm LA A4 area: 31.4 cm2 RA area: 16.7 cm2 LA length (vol): 6.9 cm RA vol: 51.1 ml LA vol: 137.8 ml RA : 24.6 ml/m2 LA vol index: 66.3 ml/m2 IVC diam: 2.2 cm RVD1 (basal): 3.3 cm RVD2 (mid): 3.1 cm TAPSE: 1.8 cm Doppler Measurements & Calculations Ao V2 max: 121.9 cm/sec LVOT Max Christiano: 90.4 cm/sec Ao V2 mean: 91.2 cm/sec LV V1 max P.3 mmHg Ao max P.9 mmHg LV V1 VTI: 17.2 cm Ao mean P.6 mmHg GIOVANNY(I,D): 3.5 cm2 Ao V2 VTI: 23.6 cm GIOVANNY(V,D): 3.5 cm2 sev ratio: 0.73 GIOVANNY indexed to BSA (cm^2/m^2): 1.7 MV E max christiano: 82.2 cm/sec TR max christiano: 232.7 cm/sec MV A max christiano: 14.9 cm/sec TR max P.7 mmHg MV E/A: 5.5 PA V2 max: 111.9 cm/sec Med Peak E' Christiano: 6.5 cm/sec PA V2 mean: 67.6 cm/sec E/E' med: 12.6 PA mean P.2 mmHg Lat Peak E' Christiano: 8.6 cm/sec PA pr(Accel): 48.2 mmHg E/E' lat: 9.5 E/e' average: 11.1 MV dec time: 0.16 sec SV(LVOT): 82.5 ml Reading Physician:04:46 PM
== END ==
PROVIDERS: Family Provider Family Medicine; PCP Family Medicine; Referring Provider Internal Medicine Cardiovascular Disease; Visit Provider Internal Medicine Cardiovascular Disease
DX: I34.0 Nonrheumatic mitral (valve) insufficiency (principal); I48.11 Longstanding persistent atrial fibrillation
CPT/HCPCS: 93306